=== PATIENT | female | born 2005 | race African-American/Black ===

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

== ENCOUNTER 2024-01-13 15:49 | Inpatient (IN) | payer MEDICAID, OTHER ==
[~2024-01-13] VITALS: Ht 162.6 cm; Wt 85.5 kg
[~2024-01-13 15:49] MED LIST changes: +RISP-106 PO; -RISP-9 PO
[2024-01-13 17:08] LABS: HEMATOCRIT 41.9 % (36.0-47.0); MEAN CORPUSCULAR HEMOGLOBIN 27.3 pg (27.0-33.0); MEAN CORPUSCULAR HGB CONC 33.4 g/dl (32.0-36.5); MEAN CORPUSCULAR VOLUME 81.8 fl (80.0-96.0); PLATELET COUNT, AUTOMATED 410 10^3/uL (150-450); RED BLOOD COUNT 5.12 10^6/uL (4.00-5.40); WHITE BLOOD COUNT 14.3 10^3/uL (4.0-10.0)
[2024-01-13 17:34] LABS: AMPHETAMINES LEVEL URINE NEGATIVE (NEGATIVE)
[2024-01-13 17:35] LABS: BARBITURATES URINE NEGATIVE (NEGATIVE); BENZODIAZEPINES URINE NEGATIVE (NEGATIVE)
[2024-01-13 17:36] LABS: CANNABINOIDS URINE NEGATIVE (NEGATIVE); COCAINE METABOLITE URINE NEGATIVE (NEGATIVE); ETHYL ALCOHOL (ETHANOL) < 0.003 % (0.000-0.010); HCG, SERUM QUALITATIVE NEGATIVE (NEGATIVE); METHADONE URINE NEGATIVE (NEGATIVE); OPIATES URINE NEGATIVE (NEGATIVE); PHENCYCLIDINE URINE NEGATIVE (NEGATIVE)
[2024-01-13 17:38] LABS: ALBUMIN 3.9 G/DL (3.2-5.2); ALKALINE PHOSPHATASE 120 U/L (46-116); ALT/SGPT < 9 U/L (7.0-40); AST/SGOT < 8 U/L (<34); BILIRUBIN,DIRECT 0.1 MG/DL (<0.4); BILIRUBIN,TOTAL 0.4 MG/DL (0.3-1.2); BLOOD UREA NITROGEN 13 MG/DL (9-23); CALCIUM LEVEL 10.2 MG/DL (8.5-10.1); CARBON DIOXIDE LEVEL 23 MMOL/L (20-31); CHLORIDE LEVEL 103 MMOL/L (98-107); CREATININE FOR GFR 0.59 MG/DL (0.55-1.30); GLUCOSE, FASTING 322 MG/DL (60-100); POTASSIUM SERUM 4.3 MMOL/L (3.5-5.1); SALICYLATE LEVEL < 3.0 MG/DL (<30); SODIUM LEVEL 135 MMOL/L (136-145); TOTAL PROTEIN 7.8 G/DL (5.7-8.2)
[2024-01-13 17:41] LABS: THYROID STIMULATING HORMONE 2.155 uIU/ML (0.48-4.17)
[2024-01-13] MEDS ORDERED: MAALOX 30 ML SUSP *UDC PO PRN (19:30)
[2024-01-13] MEDS ORDERED: MOM 30ML SUSPENSION UDC PO PRN (19:30)
[2024-01-13] MEDS ORDERED: diphenhydrAMINE 25MG CAP PO PRN (19:30)
[2024-01-13] MEDS ORDERED: IBUPROFEN 400MG TAB PO PRN (19:30)
[2024-01-13] MEDS ORDERED: DEXTROSE 50% 50ML SYRINGE IV PRN (20:45)
[2024-01-13] MEDS ORDERED: GLUCOSE 4GM CHEW TABLET PO PRN (20:45)
[2024-01-13] MEDS ORDERED: GLUCAGON INJ 1MG VIAL SC PRN (20:45)
[2024-01-13] MEDS ORDERED: HOME MED LIST COMPLETE! XX SCH (21:40)
[2024-01-13] MEDS: LEVEMIR (INSULIN DETEMIR) 1 UNITS/0.01ML SC SCH (22:24)
[2024-01-13 22:30] VITALS: BP 135/86; TEMP 97.9; O2SAT 96
[2024-01-13] MEDS: INSULIN LISPRO (NovoLOG) PER UNIT SC SCH (22:30)
[2024-01-14] MEDS: traZODone 50 MG TAB PO PRN (00:36)
[2024-01-14 06:38] VITALS: BP 131/90; TEMP 97.3; O2SAT 99
[2024-01-14] MEDS: INSULIN LISPRO (NovoLOG) PER UNIT SC SCH (06:45)
[2024-01-14] MEDS: ACETAMINOPHEN TAB 650MG DOSE (2X325MG) PO PRN (09:58)
[2024-01-14] MEDS: ESCITALOPRAM OXALATE 10 MG TAB (LEXAPRO) PO SCH (11:02)
[2024-01-14] MEDS: LITHIUM CARBONATE 150 MG CAP PO SCH (11:07)
[2024-01-14] MEDS: cloNIDine 0.1MG TABLET PO SCH (11:07)
[2024-01-14] MEDS: LURASIDONE 20 MG TAB (LATUDA) PO SCH (11:07)
[2024-01-14 18:17] VITALS: BP 122/78; TEMP 97; O2SAT 100
[2024-01-14] MEDS: LURASIDONE HCL 40MG TAB (LATUDA) PO SCH (21:28)
[2024-01-14] MEDS: PILL CUTTER 1 EACH XX PRN (21:28)
[2024-01-14] MEDS: buPROPion **XL** TABLET 150MG (WELLBUTRIN XL) PO SCH (21:29)
[2024-01-15 06:49] VITALS: BP 132/61; TEMP 97; O2SAT 100
[2024-01-15 07:42] LABS: CHOLESTEROL RISK RATIO 3.87 (<5); HDL CHOLESTEROL 48.8 MG/DL (>40); LDL CHOLESTEROL 122.6 MG/DL (<100); NON-HDL-C 140.2 MG/DL
[2024-01-15 07:46] LABS: LITHIUM LEVEL 0.16 MMOL/L (1.0-1.20)
[2024-01-15 16:32] VITALS: BP 134/62; TEMP 97.7; O2SAT 100
[2024-01-16 06:16] VITALS: BP 123/58; TEMP 97.8; O2SAT 100
[2024-01-16 15:59] VITALS: BP 120/69; TEMP 97; O2SAT 100
[2024-01-17 06:34] VITALS: BP 120/68; TEMP 97.5; O2SAT 99
[2024-01-17 16:10] VITALS: BP 112/60; TEMP 97.2; O2SAT 99
[2024-01-17] MEDS ORDERED: NICOTINE 7 MG/24 HR TRANSDERMAL TD PRN (18:45)
[2024-01-17] MEDS: LEVEMIR (INSULIN DETEMIR) 1 UNITS/0.01ML SC SCH (21:00)
[2024-01-18 06:50] VITALS: BP 143/89; TEMP 97.9; O2SAT 100
[2024-01-18 16:48] VITALS: BP 124/74; TEMP 97; O2SAT 98
[2024-01-19 06:16] VITALS: BP 137/62; TEMP 97.2; O2SAT 98
[2024-01-19 08:51] VITALS: BP 137/74
== END 2024-01-19 12:07 | disposition home or self-care (01) | DRG 750 ==
LOC: M ED 15:49 → M ED INP 19:29 → M PSY 22:00
PROVIDERS: ADMIT Student in an Organized Health Care Education/Training Program; ATTEND Student in an Organized Health Care Education/Training Program
DX: F25.9 Schizoaffective disorder, unspecified (principal); F60.3 Borderline personality disorder; F41.8 Other specified anxiety disorders; I10 Essential (primary) hypertension; F17.290 Nicotine dependence, other tobacco product, uncomplicated; F64.9 Gender identity disorder, unspecified; E11.9 Type 2 diabetes mellitus without complications; E66.9 Obesity, unspecified; Z56.0 Unemployment, unspecified; Z91.52 Personal history of nonsuicidal self-harm; Z91.51 Personal history of suicidal behavior; Z79.4 Long term (current) use of insulin; Z79.899 Other long term (current) drug therapy; Z88.0 Allergy status to penicillin; Z11.52 Encounter for screening for COVID-19

== ENCOUNTER 2024-02-05 23:49 | Emergency (ER) | payer MEDICAID, OTHER ==
[~2024-02-05] VITALS: Ht 160 cm; Wt 93.2 kg
[~2024-02-05 23:49] MED LIST changes: +BUPR-597; +BUPR-597 PO; -BUPR300T92; -BUPR300T92 PO; +INSU100I24 SQ
[2024-02-06 01:48] LABS: HEMATOCRIT 40.1 % (36.0-47.0); HEMOGLOBIN 13.3 g/dl (12.0-15.5); MEAN CORPUSCULAR HEMOGLOBIN 27.1 pg (27.0-33.0); MEAN CORPUSCULAR HGB CONC 33.2 g/dl (32.0-36.5); MEAN CORPUSCULAR VOLUME 81.8 fl (80.0-96.0); PLATELET COUNT, AUTOMATED 351 10^3/uL (150-450); WHITE BLOOD COUNT 13.5 10^3/uL (4.0-10.0)
[2024-02-06 02:14] LABS: ETHYL ALCOHOL (ETHANOL) < 0.003 % (0.000-0.010)
[2024-02-06 02:15] LABS: SALICYLATE LEVEL < 3.0 MG/DL (<30)
[2024-02-06 02:53] LABS: AMPHETAMINES LEVEL URINE NEGATIVE (NEGATIVE); BARBITURATES URINE NEGATIVE (NEGATIVE); BENZODIAZEPINES URINE NEGATIVE (NEGATIVE); CANNABINOIDS URINE NEGATIVE (NEGATIVE); COCAINE METABOLITE URINE NEGATIVE (NEGATIVE); METHADONE URINE NEGATIVE (NEGATIVE); OPIATES URINE NEGATIVE (NEGATIVE); PHENCYCLIDINE URINE NEGATIVE (NEGATIVE)
[2024-02-06] MEDS: LORazepam 1 MG TAB PO ONE (02:55)
[2024-02-06 02:57] LABS: ALBUMIN 3.8 G/DL (3.2-5.2); ALKALINE PHOSPHATASE 119 U/L (46-116); ALT/SGPT 12 U/L (7.0-40); AST/SGOT 8 U/L (<34); BILIRUBIN,DIRECT 0.2 MG/DL (<0.4); BILIRUBIN,TOTAL 0.5 MG/DL (0.3-1.2); BLOOD UREA NITROGEN 10 MG/DL (9-23); CALCIUM LEVEL 9.7 MG/DL (8.5-10.1); CARBON DIOXIDE LEVEL 25 MMOL/L (20-31); CHLORIDE LEVEL 99 MMOL/L (98-107); CREATININE FOR GFR 0.71 MG/DL (0.55-1.30); GLUCOSE, FASTING 460 MG/DL (60-100); POTASSIUM SERUM 4.3 MMOL/L (3.5-5.1); SODIUM LEVEL 131 MMOL/L (136-145); THYROID STIMULATING HORMONE 3.205 uIU/ML (0.48-4.17); TOTAL PROTEIN 7.5 G/DL (5.7-8.2)
[2024-02-06 03:01] LABS: HCG, SERUM QUALITATIVE NEGATIVE (NEGATIVE)
[2024-02-06 03:25] LABS: LITHIUM LEVEL 0.13 MMOL/L (1.0-1.20)
[2024-02-06] MEDS: diphenhydrAMINE 50MG/ML VIAL IM ONE (03:38)
[2024-02-06] MEDS: HALOPERIDOL 5MG/ML 1ML VIAL IM ONE (03:38)
[2024-02-06] MEDS: LORazepam 2 MG/ML 1ML VIAL IM ONE (03:39)
[2024-02-06] MEDS: HumuLIN R (REGULAR) INSULIN (NovoLIN R) **100U/ML** PER UNIT SC ONE (04:03)
[2024-02-06] MEDS ORDERED: HOME MED LIST COMPLETE! XX SCH (05:10)
[2024-02-06] MEDS: INSULIN LISPRO (NovoLOG) PER UNIT SC SCH (07:30)
[2024-02-06] MEDS: LEVEMIR (INSULIN DETEMIR) 1 UNITS/0.01ML SC SCH (13:40)
[2024-02-06] MEDS: ESCITALOPRAM OXALATE 10 MG TAB (LEXAPRO) PO SCH (13:41)
[2024-02-06] MEDS: LURASIDONE 20 MG TAB (LATUDA) PO SCH (13:41)
[2024-02-06] MEDS: cloNIDine 0.1MG TABLET PO SCH (13:42)
[2024-02-06] MEDS: LITHIUM CARBONATE 150 MG CAP PO SCH (13:42)
[2024-02-06] MEDS: buPROPion **XL** TABLET 150MG (WELLBUTRIN XL) PO SCH (20:53)
[2024-02-06] MEDS: LURASIDONE HCL 40MG TAB (LATUDA) PO SCH (20:53)
[2024-02-07 08:52] VITALS: BP 124/61
[2024-02-07 12:52] VITALS: BP 164/94; TEMP 97.9; O2SAT 98
[2024-02-16] MEDS ORDERED: BUPR-597 PO (07:58)
== END 2024-02-07 13:16 | disposition home or self-care (01) ==
LOC: M ED 23:49
DX: F60.3 Borderline personality disorder (principal); F43.20 Adjustment disorder, unspecified; E11.9 Type 2 diabetes mellitus without complications; Z91.51 Personal history of suicidal behavior; F20.9 Schizophrenia, unspecified; Z91.199 Patient's noncompliance with other medical treatment and regimen due to unspecified reason; Z79.4 Long term (current) use of insulin; Z79.899 Other long term (current) drug therapy; Z88.0 Allergy status to penicillin

== ENCOUNTER 2024-02-07 22:59 | Observation (INO) | payer OTHER ==
[~2024-02-07] VITALS: Ht 160 cm; Wt 87.0 kg
[2024-02-07 23:34] LABS: VENOUS HCO3 22.1 MMOL/L (23.0-27.0); VENOUS O2 SATURATION 79.3 % (60.0-80.0); VENOUS PARTIAL PRESSURE CO2 39.8 mmHg (38.0-50.0); VENOUS PARTIAL PRESSURE O2 44.6 mmHg (30.0-50.0); VENOUS PH 7.362 UNITS (7.330-7.430); VENOUS STANDARD HCO3 21.5 MMOL/L; VENOUS TOTAL CO2 23.3 MMOL/L (24.0-28.0)
[2024-02-08 00:08] LABS: BASO % 0.4 % (0.0-1.0); EOS # 0.2 10^3/uL (0.0-0.5); EOS % 1.6 % (0.0-3.0); ETHYL ALCOHOL (ETHANOL) < 0.003 % (0.000-0.010); HEMATOCRIT 41.3 % (36.0-47.0); HEMOGLOBIN 13.5 g/dl (12.0-15.5); LYMPH # 2.2 10^3/uL (1.5-5.0); LYMPH % 19.6 % (24.0-44.0); MEAN CORPUSCULAR HEMOGLOBIN 27.3 pg (27.0-33.0); MEAN CORPUSCULAR HGB CONC 32.7 g/dl (32.0-36.5); MEAN CORPUSCULAR VOLUME 83.4 fl (80.0-96.0); MONO # 0.3 10^3/uL (0.0-0.8); MONO % 2.2 % (2.0-8.0); NEUTROPHILS # 8.5 10^3/uL (1.5-8.5); NEUTROPHILS % 74.7 % (36.0-66.0); PLATELET COUNT, AUTOMATED 366 10^3/uL (150-450); RED BLOOD COUNT 4.95 10^6/uL (4.00-5.40); WHITE BLOOD COUNT 11.4 10^3/uL (4.0-10.0)
[2024-02-08 00:09] LABS: CPK CREATINE PHOSPHOKINASE 516 U/L (34-145); SALICYLATE LEVEL < 3.0 MG/DL (<30)
[2024-02-08 00:10] LABS: ALBUMIN 3.6 G/DL (3.2-5.2); ALKALINE PHOSPHATASE 110 U/L (46-116); ALT/SGPT 13 U/L (7.0-40); AST/SGOT 18 U/L (<34); BILIRUBIN,DIRECT < 0.1 MG/DL (<0.4); BILIRUBIN,TOTAL 0.3 MG/DL (0.3-1.2); BLOOD UREA NITROGEN 11 MG/DL (9-23); CALCIUM LEVEL 9.6 MG/DL (8.5-10.1); CARBON DIOXIDE LEVEL 26 MMOL/L (20-31); CHLORIDE LEVEL 103 MMOL/L (98-107); CREATININE FOR GFR 0.78 MG/DL (0.55-1.30); GLUCOSE, FASTING 102 MG/DL (60-100); POTASSIUM SERUM 3.6 MMOL/L (3.5-5.1); SODIUM LEVEL 138 MMOL/L (136-145); TOTAL PROTEIN 7.6 G/DL (5.7-8.2)
[2024-02-08 00:39] LABS: HCG, SERUM QUALITATIVE NEGATIVE (NEGATIVE)
[2024-02-08] MEDS: D5W/0.45% SODIUM CHLORIDE 1,000 ML IV SCH ×2 (00:39→06:35)
[2024-02-08] MEDS: DEXTROSE 50% 50ML VIAL IV STA (00:48)
[2024-02-08] MEDS: DEXTROSE 50% 50ML SYRINGE IV STA ×3 (00:57→04:47)
[2024-02-08 01:05] LABS: THYROID STIMULATING HORMONE 3.686 uIU/ML (0.48-4.17)
[2024-02-08 02:37] LABS: LITHIUM LEVEL 0.17 MMOL/L (1.0-1.20)
[2024-02-08 02:56] LABS: AMPHETAMINES LEVEL URINE NEGATIVE (NEGATIVE); BARBITURATES URINE NEGATIVE (NEGATIVE); BENZODIAZEPINES URINE NEGATIVE (NEGATIVE); COCAINE METABOLITE URINE NEGATIVE (NEGATIVE); METHADONE URINE NEGATIVE (NEGATIVE); OPIATES URINE NEGATIVE (NEGATIVE); PHENCYCLIDINE URINE NEGATIVE (NEGATIVE)
[2024-02-08 02:57] LABS: CANNABINOIDS URINE NEGATIVE (NEGATIVE)
[2024-02-08] MEDS: D10W/0.45% SODIUM CHLORIDE 1,000 ML IV SCH (04:54)
[2024-02-08] MEDS ORDERED: HOME MED LIST COMPLETE! XX SCH (05:30)
[2024-02-08] MEDS ORDERED: GLUCOSE 4 GM CHEW PO PRN ×2 (05:35→13:30)
[2024-02-08] MEDS ORDERED: DEXTROSE 50% 50ML SYRINGE IV PRN ×2 (05:35→13:30)
[2024-02-08] MEDS ORDERED: GLUCAGON INJ 1MG VIAL SC PRN ×2 (05:35→13:30)
[2024-02-08] MEDS: LORazepam 2 MG/ML 1ML VIAL IV PRN (06:36)
[2024-02-08] MEDS: ENOXAPARIN 40MG/0.4ML SYRINGE (J1650 PER 10MG) SC SCH (10:00)
[2024-02-08 13:15] VITALS: BP 150/99; TEMP 98.9; O2SAT 96
[2024-02-08] MEDS: cloNIDine 0.1MG TABLET PO SCH (14:10)
[2024-02-08] MEDS: ESCITALOPRAM OXALATE 10 MG TAB (LEXAPRO) PO SCH (14:11)
[2024-02-08] MEDS: LURASIDONE 20 MG TAB (LATUDA) PO SCH (15:36)
[2024-02-08 16:00] VITALS: BP 132/72
[2024-02-08] MEDS: INSULIN LISPRO (NovoLOG) PER UNIT SC SCH ×2 (17:48→20:26)
[2024-02-08] MEDS: LEVEMIR (INSULIN DETEMIR) 1 UNITS/0.01ML SC ONE (17:48)
[2024-02-08 20:00] VITALS: BP 134/75; TEMP 98.8; O2SAT 98
[2024-02-08] MEDS: buPROPion **XL** TABLET 150MG (WELLBUTRIN XL) PO SCH (20:24)
[2024-02-08] MEDS: LURASIDONE HCL 40MG TAB (LATUDA) PO SCH (20:25)
[2024-02-08] MEDS: LITHIUM CARBONATE 150 MG CAP PO SCH (20:25)
[2024-02-08] MEDS: LEVEMIR (INSULIN DETEMIR) 1 UNITS/0.01ML SC SCH (20:26)
[2024-02-08] MEDS ORDERED: LEVEMIR (INSULIN DETEMIR) 1 UNITS/0.01ML SC SCH (21:00)
[2024-02-08] MEDS ORDERED: cloNIDine 0.1MG TABLET PO SCH (21:00)
[2024-02-09 04:53] LABS: HEMATOCRIT 35.7 % (36.0-47.0); MEAN CORPUSCULAR HEMOGLOBIN 26.9 pg (27.0-33.0); MEAN CORPUSCULAR HGB CONC 32.2 g/dl (32.0-36.5); MEAN CORPUSCULAR VOLUME 83.4 fl (80.0-96.0); PLATELET COUNT, AUTOMATED 274 10^3/uL (150-450); RED BLOOD COUNT 4.28 10^6/uL (4.00-5.40); WHITE BLOOD COUNT 7.8 10^3/uL (4.0-10.0)
[2024-02-09 05:00] VITALS: BP 126/79; TEMP 97.6; O2SAT 98
[2024-02-09 05:10] LABS: HEMOGLOBIN 11.5 g/dl (12.0-15.5)
[2024-02-09 05:23] LABS: BLOOD UREA NITROGEN 8 MG/DL (9-23); CALCIUM LEVEL 8.4 MG/DL (8.5-10.1); CARBON DIOXIDE LEVEL 28 MMOL/L (20-31); CHLORIDE LEVEL 108 MMOL/L (98-107); CREATININE FOR GFR 0.66 MG/DL (0.55-1.30); GLUCOSE, FASTING 138 MG/DL (60-100); POTASSIUM SERUM 4.1 MMOL/L (3.5-5.1); SODIUM LEVEL 141 MMOL/L (136-145)
[2024-02-09 08:00] VITALS: TEMP 97.3; O2SAT 98
[2024-02-09 08:50] VITALS: BP 132/85
[2024-02-09] MEDS ORDERED: PILL CUTTER 1 EACH XX PRN (09:00)
[2024-02-16] MEDS ORDERED: BUPR-597 PO (07:58)
== END 2024-02-09 15:32 ==
LOC: M ED 22:59 → EDBD 22:59 → INTOOBSV 02-08 05:22 → M ED INP 02-08 05:22 → ENRESERV 02-08 11:54 → M ICU 02-08 13:03
PROVIDERS: ADMIT Internal Medicine Pulmonary Disease; ATTEND Internal Medicine
DX: T14.91XA Suicide attempt, initial encounter (principal); T38.3X2A Poisoning by insulin and oral hypoglycemic [antidiabetic] drugs, intentional self-harm, initial encounter; Y92.098 Other place in other non-institutional residence as the place of occurrence of the external cause; R00.0 Tachycardia, unspecified; Z63.0 Problems in relationship with spouse or partner; F32.A Depression, unspecified; F60.3 Borderline personality disorder; F25.9 Schizoaffective disorder, unspecified; E10.649 Type 1 diabetes mellitus with hypoglycemia without coma; I10 Essential (primary) hypertension; F64.9 Gender identity disorder, unspecified; Z91.51 Personal history of suicidal behavior; Z88.0 Allergy status to penicillin; Z79.899 Other long term (current) drug therapy; Z79.4 Long term (current) use of insulin; F17.290 Nicotine dependence, other tobacco product, uncomplicated; Z91.199 Patient's noncompliance with other medical treatment and regimen due to unspecified reason; F43.20 Adjustment disorder, unspecified; R45.1 Restlessness and agitation
CPT/HCPCS: 36415; 80047; 80048; 80076; 80143; 80178; 80307; 82077; 82550; 82803; 84443; 84703; 85025; 85027; 87635; 93005; 93041; 94760; 96361; 96372; 96374; 96375; 99285; J1200; J1630; J1650; J1815; J2060

== ENCOUNTER 2024-02-09 11:45 | Inpatient (IN) | payer MEDICAID, OTHER ==
[~2024-02-09] VITALS: Ht 160 cm; Wt 87.0 kg
[~2024-02-09 11:45] MED LIST changes: -BUPR-597; -BUPR-597 PO; +BUPR300T92; +BUPR300T92 PO
[2024-02-09] MEDS ORDERED: ACETAMINOPHEN TAB 650MG DOSE (2X325MG) PO PRN (12:10)
[2024-02-09] MEDS ORDERED: MAALOX 30 ML SUSP *UDC PO PRN (12:10)
[2024-02-09] MEDS ORDERED: MOM 30ML SUSPENSION UDC PO PRN (12:10)
[2024-02-09] MEDS ORDERED: traZODone 50 MG TAB PO PRN (12:10)
[2024-02-09] MEDS ORDERED: IBUPROFEN 400MG TAB PO PRN (12:10)
[2024-02-09] MEDS ORDERED: GLUCOSE 4GM CHEW TABLET PO PRN (12:20)
[2024-02-09] MEDS ORDERED: GLUCAGON INJ 1MG VIAL SC PRN (12:20)
[2024-02-09] MEDS ORDERED: DEXTROSE 50% 50ML SYRINGE IV PRN (12:20)
[2024-02-09] MEDS: INSULIN LISPRO (NovoLOG) PER UNIT SC SCH ×2 (17:31→21:00)
[2024-02-09] MEDS: LEVEMIR (INSULIN DETEMIR) 1 UNITS/0.01ML SC SCH (21:53)
[2024-02-09] MEDS ORDERED: cloNIDine 0.05MG 1/2 TABLET PO ONE (22:55)
[2024-02-10] MEDS: LURASIDONE HCL 40MG TAB (LATUDA) PO ONE (00:13)
[2024-02-10] MEDS: cloNIDine 0.1MG TABLET PO ONE (00:18)
[2024-02-10] MEDS: buPROPion **XL** TABLET 150MG (WELLBUTRIN XL) PO ONE (00:18)
[2024-02-10] MEDS: LITHIUM CARBONATE 150 MG CAP PO ONE (00:18)
[2024-02-10 00:21] VITALS: BP 143/81; TEMP 97.2
[2024-02-10] MEDS ORDERED: cloNIDine 0.1MG TABLET PO ONE (01:00)
[2024-02-10 06:19] VITALS: BP_SYST 130; BP_SYST 146; BP_DIAS 79; BP_DIAS 90; TEMP 97.4; O2SAT 100
[2024-02-10] MEDS ORDERED: HOME MED LIST COMPLETE! XX SCH (07:15)
[2024-02-10] MEDS: LEVEMIR (INSULIN DETEMIR) 1 UNITS/0.01ML SC SCH (09:00)
[2024-02-10 17:14] VITALS: BP 153/99; TEMP 97.1; O2SAT 100
[2024-02-10] MEDS: buPROPion **XL** TABLET 150MG (WELLBUTRIN XL) PO SCH (21:49)
[2024-02-10] MEDS: LITHIUM CARBONATE 150 MG CAP PO SCH (21:50)
[2024-02-10] MEDS: LURASIDONE HCL 40MG TAB (LATUDA) PO SCH (21:50)
[2024-02-10] MEDS: cloNIDine 0.1MG TABLET PO SCH (21:51)
[2024-02-10] MEDS: diphenhydrAMINE 25MG CAP PO PRN (21:54)
[2024-02-11] MEDS: ESCITALOPRAM OXALATE 10 MG TAB (LEXAPRO) PO SCH (09:45)
[2024-02-11] MEDS: LURASIDONE 20 MG TAB (LATUDA) PO SCH (09:46)
[2024-02-11 17:36] VITALS: BP 144/91; TEMP 98.8; O2SAT 100
[2024-02-11] MEDS: PILL CUTTER 1 EACH XX PRN (21:02)
[2024-02-11] MEDS: LEVEMIR (INSULIN DETEMIR) 1 UNITS/0.01ML SC SCH (21:05)
[2024-02-12 06:12] VITALS: BP 145/90; TEMP 97; O2SAT 100
[2024-02-12 17:09] VITALS: BP 121/80; TEMP 97.4; O2SAT 100
[2024-02-12 20:56] VITALS: BP 138/94
[2024-02-13 06:14] VITALS: BP 121/76; TEMP 97.9; O2SAT 100
[2024-02-13] MEDS: OLANZapine ORAL DISINTEGRATING TAB 5MG PO PRN (11:09)
[2024-02-13 22:32] VITALS: BP 114/63
[2024-02-14 08:58] VITALS: BP 138/73
[2024-02-14 16:25] VITALS: BP 136/84; TEMP 97.5; O2SAT 100
[2024-02-15 17:24] VITALS: BP 137/83; TEMP 97.3; O2SAT 100
[2024-02-16] MEDS ORDERED: LITH150C PO (07:58)
[2024-02-16] MEDS ORDERED: CLONI1TA PO (07:58)
[2024-02-16] MEDS ORDERED: LATU80TA2 PO (07:58)
[2024-02-16] MEDS ORDERED: OLAN5ZYD PO (07:58)
[2024-02-16] MEDS ORDERED: LATU20TA PO (07:58)
[2024-02-16] MEDS ORDERED: BUPR300T92 PO (07:58)
[2024-02-16] MEDS ORDERED: LEXA1TAB2 PO (07:58)
[2024-02-16 11:04] VITALS: BP 148/79
== END 2024-02-16 11:57 | disposition home or self-care (01) | DRG 750 ==
LOC: M PSY 15:40
PROVIDERS: ADMIT Student in an Organized Health Care Education/Training Program; ATTEND Student in an Organized Health Care Education/Training Program
DX: F25.9 Schizoaffective disorder, unspecified (principal); F60.3 Borderline personality disorder; F41.8 Other specified anxiety disorders; F17.210 Nicotine dependence, cigarettes, uncomplicated; F12.90 Cannabis use, unspecified, uncomplicated; I10 Essential (primary) hypertension; E10.9 Type 1 diabetes mellitus without complications; F64.9 Gender identity disorder, unspecified; F60.2 Antisocial personality disorder; R45.851 Suicidal ideations; Z79.4 Long term (current) use of insulin; Z79.899 Other long term (current) drug therapy; Z88.0 Allergy status to penicillin; Z88.1 Allergy status to other antibiotic agents; Z56.0 Unemployment, unspecified; Z71.6 Tobacco abuse counseling; Z91.51 Personal history of suicidal behavior

== ENCOUNTER 2024-04-30 17:54 | Emergency (ER) | payer MEDICAID, OTHER ==
[~2024-04-30] VITALS: Ht 160 cm; Wt 83.5 kg
[~2024-04-30 17:54] MED LIST changes: +BUPR-597; +BUPR-597 PO; -BUPR300T92; -BUPR300T92 PO; +OLAN5ZYD PO
[2024-04-30] MEDS ORDERED: LURA80TA PO (20:40)
[2024-04-30] MEDS ORDERED: LATU20TA PO (20:40)
[2024-04-30] MEDS ORDERED: BUPR150T12 PO (20:42)
[2024-04-30 20:46] VITALS: BP 129/83; TEMP 97.4; O2SAT 98
== END 2024-04-30 20:52 | disposition home or self-care (01) ==
LOC: M ED 17:54
DX: Z76.0 Encounter for issue of repeat prescription (principal); E11.9 Type 2 diabetes mellitus without complications; Z79.4 Long term (current) use of insulin; Z88.0 Allergy status to penicillin

== ENCOUNTER 2024-05-06 22:23 | Inpatient (IN) | payer MEDICAID, OTHER ==
[~2024-05-06] VITALS: Ht 160 cm; Wt 75.0 kg
[~2024-05-06 22:23] MED LIST changes: +LURA80TA PO
[2024-05-06 23:12] LABS: HEMATOCRIT 39.4 % (36.0-47.0); HEMOGLOBIN 12.9 g/dl (12.0-15.5); MEAN CORPUSCULAR HEMOGLOBIN 26.8 pg (27.0-33.0); MEAN CORPUSCULAR HGB CONC 32.7 g/dl (32.0-36.5); MEAN CORPUSCULAR VOLUME 81.7 fl (80.0-96.0); PLATELET COUNT, AUTOMATED 327 10^3/uL (150-450); RED BLOOD COUNT 4.82 10^6/uL (4.00-5.40); WHITE BLOOD COUNT 12.2 10^3/uL (4.0-10.0)
[2024-05-06 23:41] LABS: AMPHETAMINES LEVEL URINE NEGATIVE (NEGATIVE); BARBITURATES URINE NEGATIVE (NEGATIVE); BENZODIAZEPINES URINE NEGATIVE (NEGATIVE); CANNABINOIDS URINE NEGATIVE (NEGATIVE); COCAINE METABOLITE URINE NEGATIVE (NEGATIVE); METHADONE URINE NEGATIVE (NEGATIVE); OPIATES URINE NEGATIVE (NEGATIVE); PHENCYCLIDINE URINE NEGATIVE (NEGATIVE)
[2024-05-06 23:44] LABS: ETHYL ALCOHOL (ETHANOL) < 0.003 % (0.000-0.010)
[2024-05-06 23:45] LABS: SALICYLATE LEVEL < 3.0 MG/DL (<30)
[2024-05-06] MEDS ORDERED: OLAN5ZYD PO (23:51)
[2024-05-06] MEDS ORDERED: LURA20TA PO (23:51)
[2024-05-06] MEDS ORDERED: BUPR150T12 PO (23:51)
[2024-05-06] MEDS ORDERED: TRUL10IN INJ (23:51)
[2024-05-06 23:53] LABS: ALKALINE PHOSPHATASE 111 U/L (46-116); ALT/SGPT 12 U/L (7.0-40); AST/SGOT 20 U/L (<34); BILIRUBIN,DIRECT < 0.1 MG/DL (<0.4); BILIRUBIN,TOTAL 0.4 MG/DL (0.3-1.2); BLOOD UREA NITROGEN 13 MG/DL (9-23); CALCIUM LEVEL 8.9 MG/DL (8.5-10.1); CARBON DIOXIDE LEVEL 22 MMOL/L (20-31); CHLORIDE LEVEL 101 MMOL/L (98-107); CREATININE FOR GFR 0.63 MG/DL (0.55-1.30); GLUCOSE, FASTING 451 MG/DL (60-100); POTASSIUM SERUM 4.8 MMOL/L (3.5-5.1); SODIUM LEVEL 130 MMOL/L (136-145); THYROID STIMULATING HORMONE 2.709 uIU/ML (0.48-4.17); TOTAL PROTEIN 7.3 G/DL (5.7-8.2)
[2024-05-06] MEDS ORDERED: HOME MED LIST COMPLETE! XX SCH (23:55)
[2024-05-06 23:57] LABS: HCG, SERUM QUALITATIVE NEGATIVE (NEGATIVE)
[2024-05-07] MEDS: HumuLIN R (REGULAR) INSULIN (NovoLIN R) **100U/ML** PER UNIT SC STA (01:15)
[2024-05-07] MEDS: LEVEMIR (INSULIN DETEMIR) 1 UNITS/0.01ML SC ONE (01:18)
[2024-05-07] MEDS ORDERED: OLANZapine 5 MG TAB PO PRN (08:40)
[2024-05-07] MEDS: ESCITALOPRAM OXALATE 10 MG TAB (LEXAPRO) PO SCH (09:00)
[2024-05-07] MEDS: LITHIUM CARBONATE 150 MG CAP PO SCH (09:00)
[2024-05-07] MEDS ORDERED: GLUCOSE 4 GM CHEW PO PRN ×2 (10:50→14:55)
[2024-05-07] MEDS ORDERED: DEXTROSE 50% 50ML SYRINGE IV PRN ×2 (10:50→14:55)
[2024-05-07] MEDS ORDERED: GLUCAGON INJ 1MG VIAL SC PRN ×2 (10:50→14:55)
[2024-05-07] MEDS ORDERED: IBUPROFEN 400MG TAB PO PRN (12:00)
[2024-05-07] MEDS ORDERED: MAALOX 30 ML SUSP *UDC PO PRN (12:00)
[2024-05-07] MEDS ORDERED: MOM 30ML SUSPENSION UDC PO PRN (12:00)
[2024-05-07] MEDS ORDERED: INSULIN LISPRO (NovoLOG) PER UNIT SC SCH (12:00)
[2024-05-07] MEDS ORDERED: ACETAMINOPHEN TAB 650MG DOSE (2X325MG) PO PRN (12:00)
[2024-05-07] MEDS: LURASIDONE 20 MG TAB (LATUDA) PO SCH (13:15)
[2024-05-07] MEDS: INSULIN LISPRO (NovoLOG) PER UNIT SC SCH ×3 (13:15→21:00)
[2024-05-07 14:12] VITALS: BP 137/73; TEMP 97.9; O2SAT 99
[2024-05-07] MEDS: OLANZapine ORAL DISINTEGRATING TAB 5MG PO PRN (15:41)
[2024-05-07] MEDS ORDERED: buPROPion **XL** TABLET 150MG (WELLBUTRIN XL) PO SCH (21:00)
[2024-05-07] MEDS ORDERED: LEVEMIR (INSULIN DETEMIR) 1 UNITS/0.01ML SC SCH (21:00)
[2024-05-07] MEDS ORDERED: LURASIDONE HCL 40MG TAB (LATUDA) PO SCH (21:00)
[2024-05-08 06:26] VITALS: BP 135/83; TEMP 96.6; O2SAT 100
[2024-05-08] MEDS: LURASIDONE HCL 40MG TAB (LATUDA) PO SCH (18:00)
[2024-05-08] MEDS: LITHIUM CARBONATE 150 MG CAP PO SCH (21:42)
[2024-05-08] MEDS: INSULIN LISPRO (NovoLOG) PER UNIT SC STA (23:41)
[2024-05-09 06:35] VITALS: BP 144/88; TEMP 97.4; O2SAT 95
[2024-05-09 18:47] VITALS: BP 140/82; TEMP 97.5
[2024-05-09] MEDS: traZODone 50 MG TAB PO PRN (23:07)
[2024-05-10] MEDS ORDERED: OLANZapine ORAL DISINTEGRATING TAB 5MG PO PRN (07:40)
[2024-05-10] MEDS ORDERED: LURASIDONE 20 MG TAB (LATUDA) PO SCH ×2 (09:00→18:00)
[2024-05-10] MEDS: ESCITALOPRAM OXALATE 10 MG TAB (LEXAPRO) PO SCH (09:00)
[2024-05-10] MEDS: diphenhydrAMINE 25MG CAP PO PRN (14:31)
[2024-05-10] MEDS: buPROPion **XL** TABLET 150MG (WELLBUTRIN XL) PO SCH (21:22)
[2024-05-10] MEDS: LURASIDONE 20 MG TAB (LATUDA) PO SCH (21:22)
[2024-05-11 06:33] VITALS: BP 132/64; TEMP 98.1; O2SAT 98
[2024-05-12 06:41] VITALS: BP 142/90; TEMP 97; O2SAT 99
== END 2024-05-12 16:28 | disposition home or self-care (01) | DRG 750 ==
LOC: M ED 22:23 → M ED INP 05-07 11:56 → M PSY 05-07 13:53
PROVIDERS: ADMIT Psychiatry & Neurology Psychiatry; ATTEND Student in an Organized Health Care Education/Training Program
DX: F25.9 Schizoaffective disorder, unspecified (principal); E11.65 Type 2 diabetes mellitus with hyperglycemia; R45.851 Suicidal ideations; E11.9 Type 2 diabetes mellitus without complications; F12.10 Cannabis abuse, uncomplicated; F41.8 Other specified anxiety disorders; F60.3 Borderline personality disorder; I10 Essential (primary) hypertension; F17.200 Nicotine dependence, unspecified, uncomplicated; F64.9 Gender identity disorder, unspecified; F60.2 Antisocial personality disorder; Z88.0 Allergy status to penicillin; Z79.4 Long term (current) use of insulin; Z79.899 Other long term (current) drug therapy; Z63.8 Other specified problems related to primary support group

== ENCOUNTER → 2024-06-16 | Outpatient (REF) | payer MEDICAID ==
[~2024-06-16] MED LIST changes: -ARIP1TAB43; +ARIP20TA51; +LURA20TA PO; +TRUL10IN INJ
== END ==
LOC: M LAB REF 16:09
PROVIDERS: ATTEND Nurse Practitioner Family
DX: R30.0 Dysuria (principal)

== ENCOUNTER 2024-07-01 19:32 | Inpatient (IN) | payer MEDICAID, OTHER ==
[~2024-07-01] VITALS: Ht 160 cm; Wt 82.8 kg
[~2024-07-01 19:32] MED LIST changes: +INSU100I24 SC; -INSU100I24 SQ
[2024-07-01 21:07] LABS: HEMATOCRIT 37.5 % (36.0-47.0); HEMOGLOBIN 12.5 g/dl (12.0-15.5); MEAN CORPUSCULAR HEMOGLOBIN 27.2 pg (27.0-33.0); MEAN CORPUSCULAR HGB CONC 33.3 g/dl (32.0-36.5); MEAN CORPUSCULAR VOLUME 81.5 fl (80.0-96.0); PLATELET COUNT, AUTOMATED 366 10^3/uL (150-450)
[2024-07-01 21:26] LABS: BARBITURATES URINE NEGATIVE (NEGATIVE)
[2024-07-01 21:27] LABS: AMPHETAMINES LEVEL URINE NEGATIVE (NEGATIVE); BENZODIAZEPINES URINE NEGATIVE (NEGATIVE); CANNABINOIDS URINE NEGATIVE (NEGATIVE); COCAINE METABOLITE URINE NEGATIVE (NEGATIVE); METHADONE URINE NEGATIVE (NEGATIVE); OPIATES URINE NEGATIVE (NEGATIVE); PHENCYCLIDINE URINE NEGATIVE (NEGATIVE)
[2024-07-01 21:29] LABS: ETHYL ALCOHOL (ETHANOL) < 0.003 % (0.000-0.010)
[2024-07-01 21:31] LABS: SALICYLATE LEVEL < 3.0 MG/DL (<30)
[2024-07-01] MEDS ORDERED: HOME MED LIST COMPLETE! XX SCH (21:40)
[2024-07-01 22:25] LABS: ALBUMIN 3.8 G/DL (3.2-5.2); ALKALINE PHOSPHATASE 87 U/L (46-116); ALT/SGPT < 9 U/L (7.0-40); AST/SGOT < 8 U/L (<34); BILIRUBIN,DIRECT 0.1 MG/DL (<0.4); BILIRUBIN,TOTAL 0.4 MG/DL (0.3-1.2); BLOOD UREA NITROGEN 12 MG/DL (9-23); CALCIUM LEVEL 10.1 MG/DL (8.5-10.1); CARBON DIOXIDE LEVEL 24 MMOL/L (20-31); CHLORIDE LEVEL 109 MMOL/L (98-107); CREATININE FOR GFR 0.66 MG/DL (0.55-1.30); GLUCOSE, FASTING 153 MG/DL (60-100); POTASSIUM SERUM 4.1 MMOL/L (3.5-5.1); SODIUM LEVEL 140 MMOL/L (136-145); TOTAL PROTEIN 7.6 G/DL (5.7-8.2)
[2024-07-01 22:53] LABS: HCG, SERUM QUANTITATIVE < 2.6 MIU/ML (<4.2)
[2024-07-02] MEDS: buPROPion **XL** TABLET 150MG (WELLBUTRIN XL) PO SCH (00:04)
[2024-07-02] MEDS: LURASIDONE HCL 40MG TAB (LATUDA) PO SCH (00:05)
[2024-07-02] MEDS: LITHIUM CARBONATE 150 MG CAP PO SCH (00:05)
[2024-07-02 00:24] LABS: THYROID STIMULATING HORMONE 1.234 uIU/ML (0.48-4.17)
[2024-07-02] MEDS: INSULIN LISPRO (NovoLOG) PER UNIT SC SCH (07:30)
[2024-07-02] MEDS: LURASIDONE 20 MG TAB (LATUDA) PO SCH (08:32)
[2024-07-02] MEDS: ESCITALOPRAM OXALATE 10 MG TAB (LEXAPRO) PO SCH (09:17)
[2024-07-02] MEDS: LEVEMIR (INSULIN DETEMIR) 1 UNITS/0.01ML SC SCH (21:24)
[2024-07-02] MEDS: hydrOXYzine 50 MG TAB PO STA (21:36)
[2024-07-02 22:49] LABS: APPEARANCE, URINE CLOUDY (CLEAR); BACTERIA, URINE AUTO 2+ (NEGATIVE); BILIRUBIN, URINE AUTO NEGATIVE (NEGATIVE); BLOOD, URINE BLOOD NEGATIVE (NEGATIVE); COLOR, URINE YELLOW (YELLOW); GLUCOSE, URINE (UA) AUTO NEGATIVE (NEGATIVE); KETONE, URINE AUTO NEGATIVE (NEGATIVE); LEUKOCYTE ESTERASE, URINE AUTO NEGATIVE (NEGATIVE); MUCUS, URINE SMALL (NEGATIVE); NITRITE, URINE AUTO NEGATIVE (NEGATIVE); PROTEIN, URINE AUTO NEGATIVE (NEGATIVE); RBC, URINE AUTO 0 /HPF (0-3); SQUAMOUS EPITHELIAL CELL UR AU 11 /HPF (0-6); UROBILINOGEN, URINE AUTO 0.2 mg/dL (0.0-2.0); WBC, URINE AUTO 3 /HPF (0-3)
[2024-07-04] MEDS ORDERED: traZODone 50 MG TAB PO PRN (14:00)
[2024-07-04] MEDS ORDERED: IBUPROFEN 400MG TAB PO PRN (14:00)
[2024-07-04] MEDS ORDERED: MAALOX 30 ML SUSP *UDC PO PRN (14:00)
[2024-07-04] MEDS ORDERED: MOM 30ML SUSPENSION UDC PO PRN (14:00)
[2024-07-04] MEDS ORDERED: ACETAMINOPHEN TAB 650MG DOSE (2X325MG) PO PRN (14:00)
[2024-07-04] MEDS ORDERED: GLUCOSE 4 GM CHEW PO PRN (20:35)
[2024-07-04] MEDS ORDERED: GLUCAGON INJ 1MG VIAL SC PRN (20:35)
[2024-07-04] MEDS ORDERED: DEXTROSE 50% 50ML SYRINGE IV PRN (20:35)
[2024-07-04] MEDS ORDERED: LEVEMIR (INSULIN DETEMIR) 1 UNITS/0.01ML SC SCH (21:00)
[2024-07-04] MEDS: LEVEMIR (INSULIN DETEMIR) 1 UNITS/0.01ML SC SCH (21:00)
[2024-07-04] MEDS: buPROPion **XL** TABLET 150MG (WELLBUTRIN XL) PO SCH (22:00)
[2024-07-04] MEDS: LURASIDONE HCL 40MG TAB (LATUDA) PO SCH (22:01)
[2024-07-05] MEDS ORDERED: UNRESOLVED CLARIFICATION ENTRY XX SCH (00:01)
[2024-07-05] MEDS: diphenhydrAMINE 25MG CAP PO PRN (00:17)
[2024-07-05] MEDS: OLANZapine ORAL DISINTEGRATING TAB 5MG PO ONE (05:20)
[2024-07-05 06:27] VITALS: BP 140/78; TEMP 98.5; O2SAT 99
[2024-07-05] MEDS: INSULIN LISPRO (NovoLOG) PER UNIT SC SCH (06:48)
[2024-07-05] MEDS: LURASIDONE 20 MG TAB (LATUDA) PO SCH (10:00)
[2024-07-05] MEDS: ESCITALOPRAM OXALATE 10 MG TAB (LEXAPRO) PO SCH (10:00)
[2024-07-05 15:51] VITALS: BP 135/91; TEMP 97; O2SAT 99
[2024-07-06 06:27] VITALS: BP 125/68; TEMP 96.9; O2SAT 99
[2024-07-06] MEDS: buPROPion **XL** TABLET 150MG (WELLBUTRIN XL) PO SCH (20:54)
[2024-07-08] MEDS: OLANZapine ORAL DISINTEGRATING TAB 5MG PO ONE (05:13)
[2024-07-08 05:57] VITALS: BP 134/89; TEMP 98.3; O2SAT 98
[2024-07-08] MEDS: TRULICITY 0.75 MG/0.5 ML SQ SCH (09:00)
[2024-07-08 16:20] VITALS: BP 142/83; TEMP 97.8; O2SAT 100
[2024-07-09 06:14] VITALS: BP 143/81; TEMP 97.5; O2SAT 100
[2024-07-09 16:11] VITALS: BP 134/85; TEMP 98.3; O2SAT 97
[2024-07-10 15:58] VITALS: BP 144/94; TEMP 98.1; O2SAT 99
[2024-07-10] MEDS: OLANZapine 5 MG TAB PO ONE (20:49)
[2024-07-11] MEDS: LITHIUM CARBONATE 150 MG CAP PO SCH (11:29)
[2024-07-11 15:25] VITALS: BP 140/73; TEMP 97.8; O2SAT 97
[2024-07-12 16:41] VITALS: BP 139/80; TEMP 97; O2SAT 100
[2024-07-13 06:18] VITALS: BP 119/56; TEMP 98; O2SAT 97
[2024-07-14 06:33] VITALS: BP 124/69; TEMP 98.2; O2SAT 97
[2024-07-15 06:15] VITALS: BP 126/80; TEMP 97.4; O2SAT 100
[2024-07-15] MEDS ORDERED: BUPR150T12 PO (08:39)
== END 2024-07-15 12:44 | disposition home or self-care (01) | DRG 750 ==
LOC: M ED 19:32 → M ED INP 07-04 13:57 → M PSY 07-04 14:55
PROVIDERS: ADMIT Psychiatry & Neurology Psychiatry; ATTEND Psychiatry & Neurology Psychiatry
DX: F25.9 Schizoaffective disorder, unspecified (principal); E11.9 Type 2 diabetes mellitus without complications; R45.851 Suicidal ideations; F41.9 Anxiety disorder, unspecified; F17.210 Nicotine dependence, cigarettes, uncomplicated; F60.89 Other specific personality disorders; F12.10 Cannabis abuse, uncomplicated; I10 Essential (primary) hypertension; Z79.4 Long term (current) use of insulin; Z79.899 Other long term (current) drug therapy; Z88.0 Allergy status to penicillin; E66.9 Obesity, unspecified; Z68.33 Body mass index [BMI] 33.0-33.9, adult

== ENCOUNTER 2024-08-01 19:35 | Inpatient (IN) | payer MEDICAID, MEDICARE, OTHER ==
[~2024-08-01] VITALS: Ht 160 cm; Wt 82.7 kg
[~2024-08-01 19:35] MED LIST changes: -ARIP10TA32 PO; +ARIP10TA63 PO
[2024-08-01] MEDS ORDERED: HOME MED LIST COMPLETE! XX SCH (20:20)
[2024-08-01 20:38] LABS: HEMATOCRIT 37.6 % (36.0-47.0); HEMOGLOBIN 12.5 g/dl (12.0-15.5); MEAN CORPUSCULAR HEMOGLOBIN 26.9 pg (27.0-33.0); MEAN CORPUSCULAR HGB CONC 33.2 g/dl (32.0-36.5); PLATELET COUNT, AUTOMATED 401 10^3/uL (150-450); RED BLOOD COUNT 4.64 10^6/uL (4.00-5.40); WHITE BLOOD COUNT 13.3 10^3/uL (4.0-10.0)
[2024-08-01 20:58] LABS: AMPHETAMINES LEVEL URINE NEGATIVE (NEGATIVE); BARBITURATES URINE NEGATIVE (NEGATIVE); CANNABINOIDS URINE NEGATIVE (NEGATIVE); COCAINE METABOLITE URINE NEGATIVE (NEGATIVE); METHADONE URINE NEGATIVE (NEGATIVE); OPIATES URINE NEGATIVE (NEGATIVE); PHENCYCLIDINE URINE NEGATIVE (NEGATIVE)
[2024-08-01 20:59] LABS: BENZODIAZEPINES URINE NEGATIVE (NEGATIVE)
[2024-08-01 21:01] LABS: ETHYL ALCOHOL (ETHANOL) < 0.003 % (0.000-0.010)
[2024-08-01 21:03] LABS: ALKALINE PHOSPHATASE 93 U/L (46-116); ALT/SGPT 15 U/L (7.0-40); AST/SGOT 61 U/L (<34); BILIRUBIN,DIRECT 0.1 MG/DL (<0.4); BILIRUBIN,TOTAL 0.3 MG/DL (0.3-1.2); BLOOD UREA NITROGEN 9 MG/DL (9-23); CALCIUM LEVEL 10.2 MG/DL (8.5-10.1); CARBON DIOXIDE LEVEL 23 MMOL/L (20-31); CHLORIDE LEVEL 105 MMOL/L (98-107); CREATININE FOR GFR 0.78 MG/DL (0.55-1.30); GLUCOSE, FASTING 109 MG/DL (60-100); POTASSIUM SERUM 4.3 MMOL/L (3.5-5.1); SALICYLATE LEVEL < 3.0 MG/DL (<30); SODIUM LEVEL 138 MMOL/L (136-145)
[2024-08-01 21:04] LABS: THYROID STIMULATING HORMONE 2.902 uIU/ML (0.48-4.17)
[2024-08-01 21:39] LABS: HCG, SERUM QUALITATIVE NEGATIVE (NEGATIVE)
[2024-08-01 21:40] LABS: LITHIUM LEVEL 0.17 MMOL/L (1.0-1.20)
[2024-08-01] MEDS ORDERED: MAALOX 30 ML SUSP *UDC PO PRN (21:55)
[2024-08-01] MEDS ORDERED: traZODone 50 MG TAB PO PRN (21:55)
[2024-08-01] MEDS ORDERED: IBUPROFEN 400MG TAB PO PRN (21:55)
[2024-08-01] MEDS ORDERED: MOM 30ML SUSPENSION UDC PO PRN (21:55)
[2024-08-01] MEDS ORDERED: ACETAMINOPHEN TAB 650MG DOSE (2X325MG) PO PRN (21:55)
[2024-08-02] MEDS: diphenhydrAMINE 25MG CAP PO PRN (00:51)
[2024-08-02 01:00] VITALS: BP 150/99; TEMP 97.8; O2SAT 100
[2024-08-02] MEDS ORDERED: DEXTROSE 50% 50ML SYRINGE IV PRN (05:35)
[2024-08-02] MEDS ORDERED: GLUCAGON INJ 1MG VIAL SC PRN (05:35)
[2024-08-02] MEDS ORDERED: GLUCOSE 4 GM CHEW PO PRN (05:35)
[2024-08-02] MEDS: INSULIN LISPRO (NovoLOG) PER UNIT SC SCH ×2 (06:26→21:00)
[2024-08-02 06:40] VITALS: BP 145/72; TEMP 97.8; O2SAT 96
[2024-08-02] MEDS: OLANZapine ORAL DISINTEGRATING TAB 5MG PO PRN (10:10)
[2024-08-02] MEDS: buPROPion **XL** TABLET 150MG (WELLBUTRIN XL) PO SCH (10:51)
[2024-08-02] MEDS: LURASIDONE 20 MG TAB (LATUDA) PO SCH (10:51)
[2024-08-02 16:15] VITALS: BP 126/70; TEMP 97.4; O2SAT 100
[2024-08-02] MEDS: LURASIDONE HCL 40MG TAB (LATUDA) PO SCH (17:49)
[2024-08-02] MEDS: LEVEMIR (INSULIN DETEMIR) 1 UNITS/0.01ML SC SCH (21:00)
[2024-08-03 06:31] VITALS: BP 139/61; TEMP 97.6; O2SAT 100
== END 2024-08-04 12:40 | disposition home or self-care (01) | DRG 885 ==
LOC: M ED 19:35 → M ED INP 21:51 → M PSY 08-02 00:15
PROVIDERS: ADMIT Internal Medicine; ATTEND Psychiatry & Neurology Psychiatry
DX: F25.9 Schizoaffective disorder, unspecified (principal); E11.9 Type 2 diabetes mellitus without complications; F17.200 Nicotine dependence, unspecified, uncomplicated; I10 Essential (primary) hypertension; Z79.4 Long term (current) use of insulin; Z79.899 Other long term (current) drug therapy; Z88.0 Allergy status to penicillin; Z88.1 Allergy status to other antibiotic agents

== ENCOUNTER 2024-08-10 11:32 | Emergency (ER) | payer MEDICARE ==
[~2024-08-10] VITALS: Ht 162.6 cm; Wt 82.7 kg
[2024-08-10 12:50] LABS: BASO % 0.3 % (0.0-1.0); EOS # 0.2 10^3/uL (0.0-0.5); EOS % 1.5 % (0.0-3.0); HEMATOCRIT 38.5 % (36.0-47.0); HEMOGLOBIN 12.8 g/dl (12.0-15.5); LYMPH % 8.3 % (24.0-44.0); MEAN CORPUSCULAR HEMOGLOBIN 27.4 pg (27.0-33.0); MEAN CORPUSCULAR HGB CONC 33.2 g/dl (32.0-36.5); MEAN CORPUSCULAR VOLUME 82.4 fl (80.0-96.0); MONO # 0.4 10^3/uL (0.0-0.8); MONO % 3.3 % (2.0-8.0); NEUTROPHILS # 10.7 10^3/uL (1.5-8.5); NEUTROPHILS % 86.3 % (36.0-66.0); PLATELET COUNT, AUTOMATED 380 10^3/uL (150-450); RED BLOOD COUNT 4.67 10^6/uL (4.00-5.40); WHITE BLOOD COUNT 12.4 10^3/uL (4.0-10.0)
[2024-08-10 13:25] LABS: BLOOD UREA NITROGEN 9 MG/DL (9-23); CALCIUM LEVEL 9.9 MG/DL (8.5-10.1); CARBON DIOXIDE LEVEL 23 MMOL/L (20-31); CHLORIDE LEVEL 106 MMOL/L (98-107); CREATININE FOR GFR 0.84 MG/DL (0.55-1.30); GLUCOSE, FASTING 146 MG/DL (60-100); LITHIUM LEVEL 0.28 MMOL/L (1.0-1.20); POTASSIUM SERUM 5.1 MMOL/L (3.5-5.1); SODIUM LEVEL 135 MMOL/L (136-145)
[2024-08-10] MEDS ORDERED: EEG XX (14:39)
[2024-08-10 14:45] VITALS: BP 127/72
[2024-08-10 14:50] VITALS: TEMP 98.1; O2SAT 98
== END 2024-08-10 15:02 | disposition home or self-care (01) ==
LOC: EDBD 11:32 → M ED 11:32
DX: R55 Syncope and collapse (principal); E11.9 Type 2 diabetes mellitus without complications; I10 Essential (primary) hypertension; F20.9 Schizophrenia, unspecified; Z79.4 Long term (current) use of insulin; Z79.899 Other long term (current) drug therapy; Z88.0 Allergy status to penicillin

== ENCOUNTER 2024-09-29 21:59 | Inpatient (IN) | payer MEDICARE, OTHER ==
[~2024-09-29] VITALS: Ht 160 cm; Wt 77.0 kg
[~2024-09-29 21:59] MED LIST changes: +EEG XX
[2024-09-29 23:14] LABS: HEMATOCRIT 40.5 % (36.0-47.0); HEMOGLOBIN 13.1 g/dl (12.0-15.5); MEAN CORPUSCULAR HEMOGLOBIN 27.1 pg (27.0-33.0); MEAN CORPUSCULAR HGB CONC 32.3 g/dl (32.0-36.5); MEAN CORPUSCULAR VOLUME 83.7 fl (80.0-96.0); PLATELET COUNT, AUTOMATED 385 10^3/uL (150-450); RED BLOOD COUNT 4.84 10^6/uL (4.00-5.40); WHITE BLOOD COUNT 9.4 10^3/uL (4.0-10.0)
[2024-09-29 23:33] LABS: AMPHETAMINES LEVEL URINE NEGATIVE (NEGATIVE); BARBITURATES URINE NEGATIVE (NEGATIVE); BENZODIAZEPINES URINE NEGATIVE (NEGATIVE); COCAINE METABOLITE URINE NEGATIVE (NEGATIVE); METHADONE URINE NEGATIVE (NEGATIVE); OPIATES URINE NEGATIVE (NEGATIVE); PHENCYCLIDINE URINE NEGATIVE (NEGATIVE)
[2024-09-29 23:35] LABS: CANNABINOIDS URINE POSITIVE (NEGATIVE)
[2024-09-29 23:47] LABS: ETHYL ALCOHOL (ETHANOL) < 0.003 % (0.000-0.010)
[2024-09-29 23:49] LABS: ALBUMIN 3.8 G/DL (3.2-5.2); ALKALINE PHOSPHATASE 86 U/L (35-104); ALT/SGPT 13 U/L (7.0-40); AST/SGOT 12 U/L (<34); BILIRUBIN,DIRECT 0.1 MG/DL (<0.4); BILIRUBIN,TOTAL 0.4 MG/DL (0.3-1.2); BLOOD UREA NITROGEN 15 MG/DL (9-23); CALCIUM LEVEL 10.1 MG/DL (8.5-10.1); CARBON DIOXIDE LEVEL 23 MMOL/L (20-31); CHLORIDE LEVEL 104 MMOL/L (98-107); CREATININE FOR GFR 0.68 MG/DL (0.55-1.30); GLUCOSE, FASTING 132 MG/DL (60-100); LITHIUM LEVEL < 0.10 MMOL/L (1.0-1.20); POTASSIUM SERUM 4.4 MMOL/L (3.5-5.1); SALICYLATE LEVEL < 3.0 MG/DL (<30); SODIUM LEVEL 137 MMOL/L (136-145); TOTAL PROTEIN 7.9 G/DL (5.7-8.2)
[2024-09-29 23:50] LABS: HCG, SERUM QUALITATIVE NEGATIVE (NEGATIVE)
[2024-09-29 23:51] LABS: THYROID STIMULATING HORMONE 1.481 uIU/ML (0.48-4.17)
[2024-09-30] MEDS ORDERED: IBUPROFEN 400MG TAB PO PRN (01:05)
[2024-09-30] MEDS ORDERED: traZODone 50 MG TAB PO PRN (01:05)
[2024-09-30] MEDS ORDERED: ACETAMINOPHEN 325 MG TAB PO PRN (01:05)
[2024-09-30] MEDS ORDERED: MAALOX 30 ML SUSP *UDC PO PRN (01:05)
[2024-09-30] MEDS: NICOTINE 21MG/24HR 1 EA TRANSDERMAL TD ONE (01:06)
[2024-09-30] MEDS ORDERED: TRUL0.5I SQ (01:18)
[2024-09-30] MEDS ORDERED: VITA200016 PO (01:18)
[2024-09-30] MEDS ORDERED: MED REC IN PROGRESS XX SCH (01:20)
[2024-09-30] MEDS ORDERED: GLUCOSE 4 GM CHEW PO PRN (01:25)
[2024-09-30] MEDS ORDERED: DEXTROSE 50% 50ML SYRINGE IV PRN (01:25)
[2024-09-30] MEDS ORDERED: GLUCAGON INJ 1MG VIAL SC PRN (01:25)
[2024-09-30 01:49] VITALS: BP 121/86; TEMP 96.8; O2SAT 100
[2024-09-30] MEDS: INSULIN LISPRO (NovoLOG) PER UNIT SC SCH ×2 (06:41→21:00)
[2024-09-30] MEDS ORDERED: HOME MED LIST COMPLETE! XX SCH (06:45)
[2024-09-30] MEDS: LITHIUM CARBONATE 150 MG CAP PO SCH (10:47)
[2024-09-30] MEDS: ESCITALOPRAM OXALATE 10 MG TAB (LEXAPRO) PO SCH (10:47)
[2024-09-30] MEDS: NICOTINE 14 MG/24 HR TRANSDERMAL TD SCH (12:08)
[2024-09-30] MEDS: LURASIDONE 20 MG TAB (LATUDA) PO SCH (12:24)
[2024-09-30 15:34] VITALS: BP 137/86; TEMP 97.4; O2SAT 99
[2024-09-30] MEDS: buPROPion **XL** TABLET 150MG (WELLBUTRIN XL) PO SCH (21:00)
[2024-09-30] MEDS: LURASIDONE HCL 40MG TAB (LATUDA) PO SCH (21:00)
[2024-09-30] MEDS: diphenhydrAMINE 25MG CAP PO PRN (23:01)
[2024-10-01 06:39] VITALS: BP 144/63; TEMP 97.5; O2SAT 100
[2024-10-01 12:13] VITALS: BP 144/63; TEMP 97.5; O2SAT 100
[2024-10-02 06:19] VITALS: BP 128/78; TEMP 96.8; O2SAT 99
[2024-10-02 14:55] VITALS: BP 132/79; TEMP 98; O2SAT 95
[2024-10-03] MEDS: MOM 30ML SUSPENSION UDC PO PRN (04:55)
[2024-10-03 06:15] VITALS: BP 146/77; TEMP 97.8; O2SAT 98
== END 2024-10-03 13:12 | disposition home or self-care (01) | DRG 885 ==
LOC: M ED 21:59 → M ED INP 09-30 01:01 → M PSY 09-30 01:24
PROVIDERS: ADMIT Psychiatry & Neurology Psychiatry; ATTEND Psychiatry & Neurology Psychiatry
DX: F25.0 Schizoaffective disorder, bipolar type (principal); R45.851 Suicidal ideations; F60.3 Borderline personality disorder; R41.89 Other symptoms and signs involving cognitive functions and awareness; E11.9 Type 2 diabetes mellitus without complications; I10 Essential (primary) hypertension; F17.200 Nicotine dependence, unspecified, uncomplicated; G47.00 Insomnia, unspecified; Z63.0 Problems in relationship with spouse or partner; Z59.9 Problem related to housing and economic circumstances, unspecified; Z79.899 Other long term (current) drug therapy; Z63.8 Other specified problems related to primary support group; Z88.0 Allergy status to penicillin

== ENCOUNTER 2024-10-24 17:09 | Inpatient (IN) | payer MEDICARE, OTHER ==
[~2024-10-24] VITALS: Ht 160 cm; Wt 77.9 kg
[~2024-10-24 17:09] MED LIST changes: +TRUL0.5I SQ; +VITA200016 PO
[2024-10-24 18:46] LABS: HEMATOCRIT 37.9 % (36.0-47.0); HEMOGLOBIN 12.4 g/dl (12.0-15.5); MEAN CORPUSCULAR HEMOGLOBIN 27.2 pg (27.0-33.0); MEAN CORPUSCULAR HGB CONC 32.7 g/dl (32.0-36.5); MEAN CORPUSCULAR VOLUME 83.1 fl (80.0-96.0); PLATELET COUNT, AUTOMATED 376 10^3/uL (150-450); RED BLOOD COUNT 4.56 10^6/uL (4.00-5.40); WHITE BLOOD COUNT 10.9 10^3/uL (4.0-10.0)
[2024-10-24 19:12] LABS: AMPHETAMINES LEVEL URINE NEGATIVE (NEGATIVE); BARBITURATES URINE NEGATIVE (NEGATIVE)
[2024-10-24 19:13] LABS: BENZODIAZEPINES URINE NEGATIVE (NEGATIVE); CANNABINOIDS URINE NEGATIVE (NEGATIVE); COCAINE METABOLITE URINE NEGATIVE (NEGATIVE); HCG, SERUM QUALITATIVE NEGATIVE (NEGATIVE); METHADONE URINE NEGATIVE (NEGATIVE); OPIATES URINE NEGATIVE (NEGATIVE); PHENCYCLIDINE URINE NEGATIVE (NEGATIVE)
[2024-10-24 19:15] LABS: ETHYL ALCOHOL (ETHANOL) 0.007 % (0.000-0.010)
[2024-10-24 19:17] LABS: ALBUMIN 3.8 G/DL (3.2-5.2); ALKALINE PHOSPHATASE 80 U/L (35-104); ALT/SGPT 15 U/L (7.0-40); AST/SGOT 11 U/L (<34); BILIRUBIN,DIRECT 0.2 MG/DL (<0.4); BILIRUBIN,TOTAL 0.6 MG/DL (0.3-1.2); BLOOD UREA NITROGEN 11 MG/DL (9-23); CALCIUM LEVEL 9.8 MG/DL (8.5-10.1); CARBON DIOXIDE LEVEL 24 MMOL/L (20-31); CHLORIDE LEVEL 106 MMOL/L (98-107); CREATININE FOR GFR 0.63 MG/DL (0.55-1.30); GLUCOSE, FASTING 110 MG/DL (60-100); POTASSIUM SERUM 4.2 MMOL/L (3.5-5.1); SALICYLATE LEVEL < 3.0 MG/DL (<30); SODIUM LEVEL 140 MMOL/L (136-145); TOTAL PROTEIN 7.9 G/DL (5.7-8.2)
[2024-10-24 19:18] LABS: THYROID STIMULATING HORMONE 1.163 uIU/ML (0.48-4.17)
[2024-10-24] MEDS ORDERED: MAALOX 30 ML SUSP *UDC PO PRN (20:00)
[2024-10-24] MEDS ORDERED: IBUPROFEN 400MG TAB PO PRN (20:00)
[2024-10-24] MEDS ORDERED: traZODone 50 MG TAB PO PRN (20:00)
[2024-10-24] MEDS ORDERED: LORazepam 1 MG TAB PO PRN (20:00)
[2024-10-24] MEDS ORDERED: MOM 30ML SUSPENSION UDC PO PRN (20:00)
[2024-10-24] MEDS ORDERED: HOME MED LIST COMPLETE! XX SCH (20:55)
[2024-10-24 21:54] VITALS: BP 155/80; TEMP 97.5; O2SAT 97
[2024-10-25] MEDS ORDERED: DEXTROSE 50% 50ML SYRINGE IV PRN (00:20)
[2024-10-25] MEDS ORDERED: GLUCAGON INJ 1MG VIAL SC PRN (00:20)
[2024-10-25] MEDS ORDERED: GLUCOSE 4 GM CHEW PO PRN (00:20)
[2024-10-25 06:27] VITALS: BP 115/53; TEMP 97.6; O2SAT 100
[2024-10-25] MEDS: INSULIN LISPRO (NovoLOG) PER UNIT SC SCH ×2 (06:58→22:11)
[2024-10-25] MEDS: NICOTINE 14 MG/24 HR TRANSDERMAL TD SCH (09:00)
[2024-10-25 14:33] VITALS: BP 148/67; TEMP 97.5; O2SAT 100
[2024-10-25] MEDS: LURASIDONE HCL 40MG TAB (LATUDA) PO SCH (22:10)
[2024-10-25] MEDS: LITHIUM CARBONATE 150 MG CAP PO SCH (22:10)
[2024-10-25] MEDS: buPROPion **XL** TABLET 150MG (WELLBUTRIN XL) PO SCH (22:11)
[2024-10-26] MEDS: diphenhydrAMINE 25MG CAP PO PRN (00:05)
[2024-10-26] MEDS: ESCITALOPRAM OXALATE 10 MG TAB (LEXAPRO) PO SCH (09:36)
[2024-10-26] MEDS: LURASIDONE 20 MG TAB (LATUDA) PO SCH (09:37)
[2024-10-26 16:23] VITALS: BP 143/78; TEMP 98.1; O2SAT 100
[2024-10-27] MEDS: ACETAMINOPHEN 325 MG TAB PO PRN (08:01)
== END 2024-10-27 14:56 | disposition home or self-care (01) | DRG 885 ==
LOC: M ED 17:09 → M ED INP 19:56 → M PSY 21:33
PROVIDERS: ADMIT Psychiatry & Neurology Neurology; ATTEND Psychiatry & Neurology Neurology
DX: F25.0 Schizoaffective disorder, bipolar type (principal); R45.851 Suicidal ideations; F60.3 Borderline personality disorder; E11.9 Type 2 diabetes mellitus without complications; G47.00 Insomnia, unspecified; F17.210 Nicotine dependence, cigarettes, uncomplicated; F12.90 Cannabis use, unspecified, uncomplicated; Z71.51 Drug abuse counseling and surveillance of drug abuser; Z79.899 Other long term (current) drug therapy; Z88.0 Allergy status to penicillin; Z91.51 Personal history of suicidal behavior; R41.89 Other symptoms and signs involving cognitive functions and awareness

== ENCOUNTER 2024-11-15 17:44 | Inpatient (IN) | payer MEDICARE, OTHER ==
[~2024-11-15] VITALS: Ht 157.5 cm; Wt 78.2 kg
[2024-11-15 18:33] LABS: HEMATOCRIT 37.7 % (36.0-47.0); HEMOGLOBIN 12.4 g/dl (12.0-15.5); MEAN CORPUSCULAR HEMOGLOBIN 27.3 pg (27.0-33.0); MEAN CORPUSCULAR HGB CONC 32.9 g/dl (32.0-36.5); MEAN CORPUSCULAR VOLUME 82.9 fl (80.0-96.0); PLATELET COUNT, AUTOMATED 386 10^3/uL (150-450); RED BLOOD COUNT 4.55 10^6/uL (4.00-5.40); WHITE BLOOD COUNT 10.7 10^3/uL (4.0-10.0)
[2024-11-15 18:53] LABS: AMPHETAMINES LEVEL URINE NEGATIVE (NEGATIVE); BARBITURATES URINE NEGATIVE (NEGATIVE); BENZODIAZEPINES URINE NEGATIVE (NEGATIVE); CANNABINOIDS URINE NEGATIVE (NEGATIVE); COCAINE METABOLITE URINE NEGATIVE (NEGATIVE); METHADONE URINE NEGATIVE (NEGATIVE); OPIATES URINE NEGATIVE (NEGATIVE); PHENCYCLIDINE URINE NEGATIVE (NEGATIVE)
[2024-11-15 18:55] LABS: ETHYL ALCOHOL (ETHANOL) < 0.003 % (0.000-0.010)
[2024-11-15 18:56] LABS: SALICYLATE LEVEL < 3.0 MG/DL (<30)
[2024-11-15 18:57] LABS: ALBUMIN 3.8 G/DL (3.2-5.2); ALKALINE PHOSPHATASE 86 U/L (35-104); ALT/SGPT 26 U/L (7.0-40); AST/SGOT 16 U/L (<34); BILIRUBIN,DIRECT 0.2 MG/DL (<0.4); BILIRUBIN,TOTAL 0.6 MG/DL (0.3-1.2); BLOOD UREA NITROGEN 16 MG/DL (9-23); CALCIUM LEVEL 9.5 MG/DL (8.5-10.1); CARBON DIOXIDE LEVEL 25 MMOL/L (20-31); CHLORIDE LEVEL 106 MMOL/L (98-107); CREATININE FOR GFR 0.63 MG/DL (0.55-1.30); GLUCOSE, FASTING 225 MG/DL (60-100); POTASSIUM SERUM 4.1 MMOL/L (3.5-5.1); SODIUM LEVEL 138 MMOL/L (136-145); TOTAL PROTEIN 7.6 G/DL (5.7-8.2)
[2024-11-15 18:58] LABS: LITHIUM LEVEL 0.13 MMOL/L (1.0-1.20)
[2024-11-15 18:59] LABS: THYROID STIMULATING HORMONE 1.256 uIU/ML (0.48-4.17)
[2024-11-15 19:09] LABS: HCG, SERUM QUALITATIVE NEGATIVE (NEGATIVE)
[2024-11-15] MEDS: OLANZapine ORAL DISINTEGRATING TAB 5MG PO ONE (19:46)
[2024-11-15] MEDS ORDERED: diphenhydrAMINE 25MG CAP PO PRN (20:55)
[2024-11-15] MEDS ORDERED: MAALOX 30 ML SUSP *UDC PO PRN (20:55)
[2024-11-15] MEDS ORDERED: IBUPROFEN 400MG TAB PO PRN (20:55)
[2024-11-15] MEDS ORDERED: MOM 30ML SUSPENSION UDC PO PRN (20:55)
[2024-11-15] MEDS ORDERED: traZODone 50 MG TAB PO PRN (20:55)
[2024-11-15] MEDS ORDERED: ACETAMINOPHEN 325 MG TAB PO PRN (20:55)
[2024-11-15] MEDS ORDERED: OLANZapine 5 MG TAB PO PRN (20:55)
[2024-11-15] MEDS: NICOTINE 14 MG/24 HR TRANSDERMAL TD SCH (21:00)
[2024-11-16] MEDS: LURASIDONE 20 MG TAB (LATUDA) PO SCH (08:00)
[2024-11-16] MEDS: VITAMIN D 1,000 INTERNATIONAL UNITS TABLET PO SCH (09:00)
[2024-11-16] MEDS: buPROPion **XL** TABLET 150MG (WELLBUTRIN XL) PO SCH (09:00)
[2024-11-16] MEDS: LITHIUM CARBONATE 150 MG CAP PO SCH (09:00)
[2024-11-16] MEDS: ESCITALOPRAM OXALATE 10 MG TAB (LEXAPRO) PO SCH (09:00)
[2024-11-16] MEDS ORDERED: HOME MED LIST COMPLETE! XX SCH (10:00)
[2024-11-16] MEDS: NICOTINE 14 MG/24 HR TRANSDERMAL TD SCH (10:34)
[2024-11-16] MEDS: INSULIN LISPRO (NovoLOG) PER UNIT SC SCH (12:00)
[2024-11-16] MEDS ORDERED: DEXTROSE 50% 50ML SYRINGE IV PRN (14:00)
[2024-11-16] MEDS ORDERED: GLUCAGON INJ 1MG VIAL SC PRN (14:00)
[2024-11-16] MEDS ORDERED: GLUCOSE 4 GM CHEW PO PRN (14:00)
[2024-11-16 16:33] LABS: HEMOGLOBIN A1c 6.8 % (4.0-6.0)
[2024-11-16 16:44] VITALS: BP 127/80; TEMP 97.8; O2SAT 98
[2024-11-16] MEDS: LURASIDONE HCL 40MG TAB (LATUDA) PO SCH (21:17)
[2024-11-16] MEDS: OLANZapine ORAL DISINTEGRATING TAB 5MG PO PRN (22:30)
[2024-11-17 15:20] VITALS: BP 153/73; TEMP 96.8; O2SAT 97
[2024-11-18 06:37] VITALS: BP 124/68; TEMP 98; O2SAT 100
[2024-11-18] MEDS ORDERED: VITA200016 PO (09:26)
[2024-11-18] MEDS ORDERED: NICO14PA TD (09:26)
[2024-11-18] MEDS ORDERED: LURA20TA PO (09:26)
[2024-11-18] MEDS ORDERED: BUPR150T12 PO (09:26)
[2024-11-18] MEDS ORDERED: TRUL0.5I SQ (09:26)
[2024-11-18] MEDS ORDERED: LITH150C PO (09:26)
[2024-11-18] MEDS: LITHIUM CARBONATE 300 MG CAP PO SCH (09:48)
== END 2024-11-18 13:50 | disposition home or self-care (01) | DRG 885 ==
LOC: M ED 17:44 → EDBD 17:44 → M ED INP 20:51 → M PSY 21:27
PROVIDERS: ADMIT Psychiatry & Neurology Neurology; ATTEND Psychiatry & Neurology Neurology
DX: F25.0 Schizoaffective disorder, bipolar type (principal); R45.851 Suicidal ideations; F60.3 Borderline personality disorder; F41.8 Other specified anxiety disorders; F17.210 Nicotine dependence, cigarettes, uncomplicated; F12.90 Cannabis use, unspecified, uncomplicated; E11.9 Type 2 diabetes mellitus without complications; F79 Unspecified intellectual disabilities; Z91.52 Personal history of nonsuicidal self-harm; Z62.810 Personal history of physical and sexual abuse in childhood; Z91.51 Personal history of suicidal behavior; Z81.8 Family history of other mental and behavioral disorders; Z79.899 Other long term (current) drug therapy; Z88.0 Allergy status to penicillin; Z88.1 Allergy status to other antibiotic agents; Z71.51 Drug abuse counseling and surveillance of drug abuser; Z11.52 Encounter for screening for COVID-19

== ENCOUNTER 2025-01-19 17:53 | Emergency (ER) | payer MEDICARE, OTHER ==
[~2025-01-19] VITALS: Ht 160 cm; Wt 69.3 kg
[~2025-01-19 17:53] MED LIST changes: -BUPR-335 PO; +NICO14PA TD; +[UNRECOGNIZED DRUG - CODE] PO
[2025-01-19 18:08] VITALS: TEMP 96.3
[2025-01-19 19:04] LABS: IONIZED CALCIUM 4.7 MG/DL (4.5-5.3)
[2025-01-19 19:16] LABS: BASO % 0.5 % (0.0-1.0); EOS # 0.1 10^3/uL (0.0-0.5); EOS % 0.7 % (0.0-3.0); HEMATOCRIT 37.2 % (36.0-47.0); HEMOGLOBIN 12.2 g/dl (12.0-15.5); LYMPH # 1.2 10^3/uL (1.5-5.0); LYMPH % 13.1 % (24.0-44.0); MEAN CORPUSCULAR HEMOGLOBIN 26.9 pg (27.0-33.0); MEAN CORPUSCULAR HGB CONC 32.8 g/dl (32.0-36.5); MEAN CORPUSCULAR VOLUME 81.9 fl (80.0-96.0); MONO # 0.3 10^3/uL (0.0-0.8); MONO % 3.3 % (2.0-8.0); NEUTROPHILS # 7.3 10^3/uL (1.5-8.5); NEUTROPHILS % 82.1 % (36.0-66.0); PLATELET COUNT, AUTOMATED 256 10^3/uL (150-450); RED BLOOD COUNT 4.54 10^6/uL (4.00-5.40); WHITE BLOOD COUNT 8.9 10^3/uL (4.0-10.0)
[2025-01-19 19:32] LABS: ALKALINE PHOSPHATASE 71 U/L (35-104); ALT/SGPT 9 U/L (7.0-40); AST/SGOT 12 U/L (<34); BILIRUBIN,DIRECT 0.2 MG/DL (<0.4); BILIRUBIN,TOTAL 0.7 MG/DL (0.3-1.2); BLOOD UREA NITROGEN 14 MG/DL (9-23); CALCIUM LEVEL 9.8 MG/DL (8.5-10.1); CARBON DIOXIDE LEVEL 25 MMOL/L (20-31); CHLORIDE LEVEL 108 MMOL/L (98-107); CREATININE FOR GFR 0.65 MG/DL (0.55-1.30); GLUCOSE, FASTING 111 MG/DL (60-100); MAGNESIUM LEVEL 1.9 MG/DL (1.8-2.4); PHOSPHORUS LEVEL 3.8 MG/DL (2.5-4.9); POTASSIUM SERUM 4.3 MMOL/L (3.5-5.1); SODIUM LEVEL 141 MMOL/L (136-145)
[2025-01-19 21:00] VITALS: BP 130/74; O2SAT 100
== END 2025-01-19 21:27 | disposition home or self-care (01) ==
LOC: EDBD 17:53 → M ED 17:53
DX: F44.5 Conversion disorder with seizures or convulsions (principal); E11.9 Type 2 diabetes mellitus without complications; F25.9 Schizoaffective disorder, unspecified; F17.200 Nicotine dependence, unspecified, uncomplicated; F12.10 Cannabis abuse, uncomplicated; Z79.4 Long term (current) use of insulin; Z79.899 Other long term (current) drug therapy; Z88.0 Allergy status to penicillin

== ENCOUNTER 2025-01-28 10:08 | Emergency (ER) | payer MEDICARE, OTHER ==
[~2025-01-28] VITALS: Ht 160 cm; Wt 72.9 kg
[2025-01-28 10:51] LABS: HEMATOCRIT 37.4 % (36.0-47.0); HEMOGLOBIN 12.2 g/dl (12.0-15.5); MEAN CORPUSCULAR HEMOGLOBIN 26.7 pg (27.0-33.0); MEAN CORPUSCULAR HGB CONC 32.6 g/dl (32.0-36.5); MEAN CORPUSCULAR VOLUME 81.8 fl (80.0-96.0); PLATELET COUNT, AUTOMATED 327 10^3/uL (150-450); RED BLOOD COUNT 4.57 10^6/uL (4.00-5.40)
[2025-01-28 11:20] LABS: AMPHETAMINES LEVEL URINE NEGATIVE (NEGATIVE); BARBITURATES URINE NEGATIVE (NEGATIVE); BENZODIAZEPINES URINE NEGATIVE (NEGATIVE); COCAINE METABOLITE URINE NEGATIVE (NEGATIVE); METHADONE URINE NEGATIVE (NEGATIVE); OPIATES URINE NEGATIVE (NEGATIVE); PHENCYCLIDINE URINE NEGATIVE (NEGATIVE)
[2025-01-28 11:21] LABS: CANNABINOIDS URINE NEGATIVE (NEGATIVE)
[2025-01-28 11:22] LABS: ETHYL ALCOHOL (ETHANOL) 0.006 % (0.000-0.010)
[2025-01-28 11:24] LABS: ALBUMIN 3.9 G/DL (3.2-5.2); ALKALINE PHOSPHATASE 67 U/L (35-104); ALT/SGPT < 9 U/L (7.0-40); AST/SGOT 11 U/L (<34); BILIRUBIN,DIRECT 0.2 MG/DL (<0.4); BILIRUBIN,TOTAL 0.7 MG/DL (0.3-1.2); BLOOD UREA NITROGEN 13 MG/DL (9-23); CALCIUM LEVEL 9.7 MG/DL (8.5-10.1); CARBON DIOXIDE LEVEL 25 MMOL/L (20-31); CHLORIDE LEVEL 107 MMOL/L (98-107); CREATININE FOR GFR 0.69 MG/DL (0.55-1.30); GLOMERULAR FILTRATION RATE > 60.0 (>60); GLUCOSE, FASTING 98 MG/DL (60-100); POTASSIUM SERUM 4.1 MMOL/L (3.5-5.1); SALICYLATE LEVEL < 3.0 MG/DL (<30); SODIUM LEVEL 141 MMOL/L (136-145); TOTAL PROTEIN 7.6 G/DL (5.7-8.2)
[2025-01-28 11:25] LABS: LITHIUM LEVEL 0.14 MMOL/L (1.0-1.20)
[2025-01-28 11:27] LABS: HCG, SERUM QUALITATIVE NEGATIVE (NEGATIVE)
[2025-01-28] MEDS: ACETAMINOPHEN 325 MG TAB PO ONE (12:00)
[2025-01-28] MEDS ORDERED: HOME MED LIST COMPLETE! XX SCH (13:00)
[2025-01-28 14:55] LABS: APPEARANCE, URINE TURBID (CLEAR); BACTERIA, URINE AUTO 1+ (NEGATIVE); BILIRUBIN, URINE AUTO NEGATIVE (NEGATIVE); BLOOD, URINE BLOOD 1+ (NEGATIVE); COLOR, URINE YELLOW (YELLOW); GLUCOSE, URINE (UA) AUTO NEGATIVE (NEGATIVE); KETONE, URINE AUTO NEGATIVE (NEGATIVE); LEUKOCYTE ESTERASE, URINE AUTO 2+ (NEGATIVE); MUCUS, URINE LARGE (NEGATIVE); NITRITE, URINE AUTO POSITIVE (NEGATIVE); PROTEIN, URINE AUTO 2+ mg/dL (NEGATIVE); RBC, URINE AUTO 8 /HPF (0-3); SPECIFIC GRAVITY URINE AUTO 1.027 (1.002-1.035); SQUAMOUS EPITHELIAL CELL UR AU 24 /HPF (0-6); UROBILINOGEN, URINE AUTO 0.2 mg/dL (0.0-2.0); WBC, URINE AUTO TNTC /HPF (0-3)
[2025-01-28] MEDS: CIPROFLOXACIN 250MG TAB PO SCH (22:14)
[2025-01-29 08:56] VITALS: BP 116/76; TEMP 98; O2SAT 99
== END 2025-01-29 10:20 ==
LOC: M ED 10:08
DX: R45.851 Suicidal ideations (principal); N39.0 Urinary tract infection, site not specified; F25.9 Schizoaffective disorder, unspecified; F60.3 Borderline personality disorder; Z88.0 Allergy status to penicillin; Z88.1 Allergy status to other antibiotic agents

== ENCOUNTER 2025-04-28 17:59 | Inpatient (IN) | payer MEDICARE, MEDICAID ==
[~2025-04-28] VITALS: Ht 162.6 cm; Wt 75.0 kg
[~2025-04-28 17:59] MED LIST changes: +BUPR-500 PO; -BUPR-597; -BUPR-597 PO; +BUPR-766; +BUPR-766 PO; -[UNRECOGNIZED DRUG - CODE] PO
[2025-04-28 18:36] LABS: PLATELET COUNT, AUTOMATED 372 10^3/uL (150-450)
[2025-04-28 18:59] LABS: AMPHETAMINES LEVEL URINE NEGATIVE (NEGATIVE); BARBITURATES URINE NEGATIVE (NEGATIVE); BENZODIAZEPINES URINE NEGATIVE (NEGATIVE); CANNABINOIDS URINE NEGATIVE (NEGATIVE); COCAINE METABOLITE URINE NEGATIVE (NEGATIVE); METHADONE URINE NEGATIVE (NEGATIVE); OPIATES URINE NEGATIVE (NEGATIVE); PHENCYCLIDINE URINE NEGATIVE (NEGATIVE)
[2025-04-28 19:02] LABS: ETHYL ALCOHOL (ETHANOL) 0.003 % (0.000-0.010)
[2025-04-28 19:03] LABS: SALICYLATE LEVEL < 3.0 MG/DL (<30)
[2025-04-28 19:09] LABS: ALT/SGPT 11 U/L (7.0-40); AST/SGOT 14 U/L (<34); CALCIUM LEVEL 9.7 MG/DL (8.5-10.1); CARBON DIOXIDE LEVEL 22 MMOL/L (20-31); CHLORIDE LEVEL 106 MMOL/L (98-107); CREATININE FOR GFR 0.68 MG/DL (0.55-1.30); GLOMERULAR FILTRATION RATE > 90.0 (>60); POTASSIUM SERUM 4.3 MMOL/L (3.5-5.1); SODIUM LEVEL 140 MMOL/L (136-145)
[2025-04-28 19:27] LABS: HCG, SERUM QUALITATIVE NEGATIVE (NEGATIVE)
[2025-04-28] MEDS ORDERED: OLAN10TA12 PO (19:29)
[2025-04-28] MEDS ORDERED: LEXA1TAB PO (19:29)
[2025-04-28] MEDS ORDERED: REXU1TAB3 PO (19:29)
[2025-04-28] MEDS ORDERED: TRUL10IN SC (19:29)
[2025-04-28] MEDS ORDERED: HOME MED LIST COMPLETE! XX SCH (19:30)
[2025-04-28] MEDS ORDERED: traZODone 50 MG TAB PO PRN (21:05)
[2025-04-28] MEDS ORDERED: MOM 30 ML SUSPENSION UDC PO PRN (21:05)
[2025-04-28] MEDS ORDERED: MAALOX 30 ML SUSP *UDC PO PRN (21:05)
[2025-04-29 06:34] VITALS: BP 134/82; TEMP 97.6; O2SAT 99
[2025-04-29] MEDS: INSULIN LISPRO (NovoLOG) PER UNIT SC SCH ×2 (07:30→21:00)
[2025-04-29] MEDS: ESCITALOPRAM OXALATE 10 MG TABLET PO SCH (08:52)
[2025-04-29] MEDS ORDERED: TRUL10IN SC (09:24)
[2025-04-29] MEDS ORDERED: GLUCOSE 4 GM CHEW PO PRN (09:25)
[2025-04-29] MEDS ORDERED: GLUCAGON INJ 1 MG VIAL SC PRN (09:25)
[2025-04-29] MEDS ORDERED: DEXTROSE 50% 50 ML SYRINGE IV PRN (09:25)
[2025-04-29 15:47] VITALS: BP 139/86; TEMP 97.6; O2SAT 99
[2025-04-29] MEDS: OLANZapine ORAL DISINTEGRATING TAB 5MG PO SCH (21:00)
[2025-04-30 15:24] VITALS: BP 134/89; TEMP 97.4; O2SAT 100
[2025-04-30] MEDS: ESCITALOPRAM OXALATE 5 MG TABLET PO SCH (21:33)
[2025-05-01] MEDS: OLANZapine ORAL DISINTEGRATING TAB 5MG PO PRN (15:56)
[2025-05-02 15:16] VITALS: BP 133/61; TEMP 98.3; O2SAT 97
[2025-05-02] MEDS: OLANZapine ORAL DISINTEGRATING TAB 5MG PO SCH (20:35)
[2025-05-03 06:22] VITALS: BP 129/62; TEMP 97.9; O2SAT 98
[2025-05-03 17:42] VITALS: BP 139/69; TEMP 98.4; O2SAT 100
[2025-05-04 06:48] VITALS: BP 112/72; TEMP 97.4; O2SAT 91
[2025-05-04] MEDS ORDERED: TRULICITY (PATIENT'S OWN MED) SC SCH ×2 (09:00)
[2025-05-04 15:42] VITALS: BP 145/67; TEMP 98.3; O2SAT 99
[2025-05-05 06:40] VITALS: BP 117/58; TEMP 97; O2SAT 99
[2025-05-06] MEDS: IBUPROFEN 400 MG TAB PO PRN (02:23)
[2025-05-06] MEDS: ACETAMINOPHEN 325 MG TAB PO PRN (12:49)
[2025-05-07 16:00] VITALS: BP 120/65; TEMP 97.7; O2SAT 99
[2025-05-08] MEDS ORDERED: OLAN1TAB20 PO (03:02)
[2025-05-08] MEDS ORDERED: LEXA1TAB PO (03:02)
[2025-05-08] MEDS ORDERED: HYDR-3363 PO (03:02)
[2025-05-08] MEDS ORDERED: OLAN1TAB16 PO (03:02)
[2025-05-08] MEDS ORDERED: TRAZ-252 PO (03:02)
[2025-05-08] MEDS: DULAGLUTIDE 0.75 MG/0.5 ML SC SCH (10:32)
[2025-05-11] MEDS ORDERED: DULAGLUTIDE 0.75 MG/0.5 ML SC SCH (09:00)
== END 2025-05-08 12:05 | disposition home or self-care (01) | DRG 885 ==
LOC: M ED 17:59 → M ED INP 21:05 → M PSY 22:36
PROVIDERS: ADMIT Psychiatry & Neurology Neurology; ATTEND Psychiatry & Neurology Neurology
DX: F25.0 Schizoaffective disorder, bipolar type (principal); R45.851 Suicidal ideations; F41.1 Generalized anxiety disorder; F60.3 Borderline personality disorder; R45.850 Homicidal ideations; F12.90 Cannabis use, unspecified, uncomplicated; E11.9 Type 2 diabetes mellitus without complications; Z56.0 Unemployment, unspecified; Z79.899 Other long term (current) drug therapy; Z79.85 Long-term (current) use of injectable non-insulin antidiabetic drugs; Z88.0 Allergy status to penicillin; Z88.1 Allergy status to other antibiotic agents; Z87.891 Personal history of nicotine dependence; Z71.51 Drug abuse counseling and surveillance of drug abuser; Z91.51 Personal history of suicidal behavior

== ENCOUNTER 2025-05-21 17:56 | Inpatient (IN) | payer MEDICARE, MEDICAID ==
[~2025-05-21] VITALS: Ht 162.6 cm; Wt 78.8 kg
[~2025-05-21 17:56] MED LIST changes: +HYDR-3363 PO; +LEXA1TAB PO; +OLAN10TA12 PO; +OLAN1TAB16 PO; +OLAN1TAB20 PO; +REXU1TAB3 PO; +TRAZ-252 PO; +TRUL10IN SC
[2025-05-21 19:15] LABS: PLATELET COUNT, AUTOMATED 362 10^3/uL (150-450)
[2025-05-21 19:36] LABS: AMPHETAMINES LEVEL URINE NEGATIVE (NEGATIVE); BARBITURATES URINE NEGATIVE (NEGATIVE); BENZODIAZEPINES URINE NEGATIVE (NEGATIVE); COCAINE METABOLITE URINE NEGATIVE (NEGATIVE); METHADONE URINE NEGATIVE (NEGATIVE)
[2025-05-21 19:37] LABS: CANNABINOIDS URINE POSITIVE (NEGATIVE); OPIATES URINE NEGATIVE (NEGATIVE); PHENCYCLIDINE URINE NEGATIVE (NEGATIVE)
[2025-05-21 19:38] LABS: ETHYL ALCOHOL (ETHANOL) < 0.003 % (0.000-0.010); HCG, SERUM QUALITATIVE NEGATIVE (NEGATIVE)
[2025-05-21 19:40] LABS: ALT/SGPT 19 U/L (7.0-40); AST/SGOT 19 U/L (<34); CALCIUM LEVEL 9.6 MG/DL (8.5-10.1); CARBON DIOXIDE LEVEL 27 MMOL/L (20-31); CHLORIDE LEVEL 103 MMOL/L (98-107); CREATININE FOR GFR 0.67 MG/DL (0.55-1.30); GLOMERULAR FILTRATION RATE > 90.0 (>60); POTASSIUM SERUM 3.9 MMOL/L (3.5-5.1); SALICYLATE LEVEL < 3.0 MG/DL (<30); SODIUM LEVEL 142 MMOL/L (136-145)
[2025-05-21] MEDS ORDERED: TRUL10IN SC (20:35)
[2025-05-21] MEDS ORDERED: LEXA1TAB PO (20:39)
[2025-05-21] MEDS: ESCITALOPRAM OXALATE 10 MG TABLET PO ONE (20:39)
[2025-05-21] MEDS: OLANZapine 10 MG TAB PO ONE (20:39)
[2025-05-21] MEDS ORDERED: ACET1TAB55 PO (20:54)
[2025-05-21] MEDS ORDERED: ACET-683 PO (20:54)
[2025-05-21] MEDS ORDERED: BENA25CA4 PO (20:54)
[2025-05-21] MEDS ORDERED: OLAN1TAB16 PO (20:54)
[2025-05-21] MEDS ORDERED: OLAN1TAB20 PO (20:54)
[2025-05-21] MEDS ORDERED: HOME MED LIST COMPLETE! XX SCH (20:55)
[2025-05-22] MEDS ORDERED: ACETAMINOPHEN 325 MG TAB PO PRN (12:40)
[2025-05-22] MEDS ORDERED: MOM 30 ML SUSPENSION UDC PO PRN (12:40)
[2025-05-22] MEDS ORDERED: traZODone 50 MG TAB PO PRN (12:40)
[2025-05-22] MEDS ORDERED: IBUPROFEN 400 MG TAB PO PRN (12:40)
[2025-05-22] MEDS ORDERED: MAALOX 30 ML SUSP *UDC PO PRN (12:40)
[2025-05-22 13:44] VITALS: BP 134/72; TEMP 99.1; O2SAT 100
[2025-05-22] MEDS: OLANZapine ORAL DISINTEGRATING TAB 5MG PO PRN (17:37)
[2025-05-22] MEDS: ESCITALOPRAM OXALATE 10 MG TABLET PO SCH (20:16)
[2025-05-22] MEDS: OLANZapine 10 MG TAB PO SCH (20:16)
[2025-05-23 15:27] VITALS: BP 154/85; TEMP 97.3; O2SAT 100
[2025-05-23] MEDS ORDERED: ENTER DRUG NAME HERE (PATIENT'S OWN MED) SC SCH (16:55)
[2025-05-23] MEDS ORDERED: OLANZapine 10 MG TAB PO SCH (21:00)
[2025-05-24] MEDS ORDERED: LEXA1TAB PO (08:42)
[2025-05-24] MEDS ORDERED: ESCITALOPRAM OXALATE 10 MG TABLET PO SCH (09:00)
== END 2025-05-24 10:25 | disposition home or self-care (01) | DRG 885 ==
LOC: M ED 17:56 → EDBD 17:56 → M ED INP 05-22 12:38 → M PSY 05-22 13:50
PROVIDERS: ADMIT General Practice; ATTEND General Practice
DX: F33.2 Major depressive disorder, recurrent severe without psychotic features (principal); R45.851 Suicidal ideations; F25.9 Schizoaffective disorder, unspecified; F60.3 Borderline personality disorder; E11.9 Type 2 diabetes mellitus without complications; F17.210 Nicotine dependence, cigarettes, uncomplicated; I10 Essential (primary) hypertension; G47.00 Insomnia, unspecified; G40.909 Epilepsy, unspecified, not intractable, without status epilepticus; Z63.0 Problems in relationship with spouse or partner; Z79.899 Other long term (current) drug therapy; Z91.51 Personal history of suicidal behavior; Z56.0 Unemployment, unspecified; Z79.85 Long-term (current) use of injectable non-insulin antidiabetic drugs; Z88.0 Allergy status to penicillin; Z88.1 Allergy status to other antibiotic agents; Z88.8 Allergy status to other drugs, medicaments and biological substances

== ENCOUNTER 2025-05-31 16:27 | Inpatient (IN) | payer MEDICARE, MEDICAID ==
[~2025-05-31] VITALS: Ht 162.6 cm; Wt 77.3 kg
[~2025-05-31 16:27] MED LIST changes: +ACET-683 PO; +ACET1TAB55 PO; +BENA25CA4 PO
[2025-05-31 17:21] LABS: PLATELET COUNT, AUTOMATED 341 10^3/uL (150-450)
[2025-05-31 19:11] LABS: ALT/SGPT 23 U/L (7.0-40); AST/SGOT 29 U/L (<34); CALCIUM LEVEL 9.1 MG/DL (8.5-10.1); CARBON DIOXIDE LEVEL 21.7 MMOL/L (20-31); CHLORIDE LEVEL 106 MMOL/L (98-107); CREATININE FOR GFR 0.64 MG/DL (0.55-1.30); GLOMERULAR FILTRATION RATE > 90.0 (>60); POTASSIUM SERUM 4.1 MMOL/L (3.5-5.1); SODIUM LEVEL 141 MMOL/L (136-145)
[2025-05-31 19:13] LABS: ETHYL ALCOHOL (ETHANOL) < 0.003 % (0.000-0.010); SALICYLATE LEVEL < 3.0 MG/DL (<30)
[2025-05-31 19:22] LABS: HCG, SERUM QUALITATIVE NEGATIVE (NEGATIVE)
[2025-05-31 20:03] LABS: AMPHETAMINES LEVEL URINE NEGATIVE (NEGATIVE); BARBITURATES URINE NEGATIVE (NEGATIVE); BENZODIAZEPINES URINE NEGATIVE (NEGATIVE); CANNABINOIDS URINE POSITIVE (NEGATIVE); COCAINE METABOLITE URINE NEGATIVE (NEGATIVE); METHADONE URINE NEGATIVE (NEGATIVE); OPIATES URINE NEGATIVE (NEGATIVE)
[2025-05-31 20:35] LABS: PHENCYCLIDINE URINE NEGATIVE (NEGATIVE)
[2025-05-31] MEDS ORDERED: MOM 30 ML SUSPENSION UDC PO PRN (20:35)
[2025-05-31] MEDS ORDERED: traZODone 50 MG TAB PO PRN (20:35)
[2025-05-31] MEDS ORDERED: MAALOX 30 ML SUSP *UDC PO PRN (20:35)
[2025-05-31] MEDS ORDERED: HOME MED LIST COMPLETE! XX SCH (21:55)
[2025-06-01 06:29] VITALS: BP 94/50; TEMP 97.6; O2SAT 100
[2025-06-01] MEDS: ACETAMINOPHEN 325 MG TAB PO PRN (09:55)
[2025-06-01] MEDS: IBUPROFEN 400 MG TAB PO PRN (12:25)
[2025-06-01] MEDS ORDERED: GLUCOSE 4 GM CHEW PO PRN (12:55)
[2025-06-01] MEDS ORDERED: GLUCAGON INJ 1 MG VIAL SC PRN (12:55)
[2025-06-01] MEDS ORDERED: DEXTROSE 50% 50 ML SYRINGE IV PRN (12:55)
[2025-06-01] MEDS: OLANZapine 5 MG TAB PO ONE (13:46)
[2025-06-01 14:54] VITALS: BP 148/82; TEMP 97.8; O2SAT 99
[2025-06-01] MEDS: INSULIN LISPRO (NovoLOG) PER UNIT SC SCH ×2 (17:01→21:00)
[2025-06-01] MEDS: ESCITALOPRAM OXALATE 10 MG TABLET PO SCH (21:00)
[2025-06-01] MEDS: OLANZapine 10 MG TAB PO SCH (21:00)
[2025-06-02 08:14] VITALS: BP 124/75; TEMP 97.4; O2SAT 100
[2025-06-02] MEDS: OLANZapine 5 MG TAB PO SCH (11:33)
[2025-06-02 15:12] VITALS: BP 137/87; TEMP 97.9; O2SAT 97
[2025-06-02] MEDS: NICOTINE POLACRILEX 2 MG GUM PO PRN (17:58)
[2025-06-02] MEDS: DIVALPROEX 500 MG *ER* TAB PO SCH (20:51)
[2025-06-03 14:44] VITALS: BP 138/76; TEMP 98.5; O2SAT 99
[2025-06-04 15:12] VITALS: BP 141/70; TEMP 98.6; O2SAT 98
[2025-06-05 15:26] VITALS: BP 145/81; TEMP 98.6; O2SAT 98
[2025-06-05] MEDS: OLANZapine 5 MG TAB PO PRN (19:12)
[2025-06-05] MEDS: ESCITALOPRAM OXALATE 10 MG TABLET PO SCH (21:40)
[2025-06-06 17:11] VITALS: BP 141/87; TEMP 99.3; O2SAT 98
[2025-06-07 06:34] VITALS: BP 97/51; TEMP 96.9; O2SAT 97
[2025-06-07] MEDS ORDERED: DEPA500T2 PO (08:26)
[2025-06-07] MEDS ORDERED: OLAN1TAB20 PO (08:26)
[2025-06-07] MEDS ORDERED: OLAN1TAB16 PO ×2 (08:26)
[2025-06-07] MEDS ORDERED: LEXA1TAB PO (08:26)
== END 2025-06-07 13:52 | disposition home or self-care (01) | DRG 885 ==
LOC: M ED 16:27 → M ED INP 20:35 → M PSY 22:56
PROVIDERS: ADMIT Psychiatry & Neurology Neurology; ATTEND Psychiatry & Neurology Neurology
DX: F25.0 Schizoaffective disorder, bipolar type (principal); R45.851 Suicidal ideations; F41.1 Generalized anxiety disorder; F41.0 Panic disorder [episodic paroxysmal anxiety]; F60.3 Borderline personality disorder; Z88.0 Allergy status to penicillin; Z88.8 Allergy status to other drugs, medicaments and biological substances; Z79.899 Other long term (current) drug therapy; Z91.148 Patient's other noncompliance with medication regimen for other reason; F17.200 Nicotine dependence, unspecified, uncomplicated; E11.9 Type 2 diabetes mellitus without complications; G47.00 Insomnia, unspecified

== ENCOUNTER 2025-06-23 16:59 | Inpatient (IN) | payer MEDICARE, MEDICAID ==
[~2025-06-23] VITALS: Ht 160 cm; Wt 85.4 kg
[~2025-06-23 16:59] MED LIST changes: +DEPA500T2 PO
[2025-06-23 18:01] LABS: PLATELET COUNT, AUTOMATED 354 10^3/uL (150-450)
[2025-06-23 18:16] LABS: AMPHETAMINES LEVEL URINE NEGATIVE (NEGATIVE); BARBITURATES URINE NEGATIVE (NEGATIVE)
[2025-06-23 18:17] LABS: BENZODIAZEPINES URINE NEGATIVE (NEGATIVE); COCAINE METABOLITE URINE NEGATIVE (NEGATIVE); METHADONE URINE NEGATIVE (NEGATIVE); OPIATES URINE NEGATIVE (NEGATIVE); PHENCYCLIDINE URINE NEGATIVE (NEGATIVE)
[2025-06-23 18:19] LABS: ETHYL ALCOHOL (ETHANOL) 0.004 % (0.000-0.010)
[2025-06-23 18:21] LABS: ALT/SGPT 28 U/L (7.0-40); AST/SGOT 14 U/L (<34); CALCIUM LEVEL 9.6 MG/DL (8.5-10.1); CANNABINOIDS URINE POSITIVE (NEGATIVE); CARBON DIOXIDE LEVEL 23 MMOL/L (20-31); CHLORIDE LEVEL 108 MMOL/L (98-107); CREATININE FOR GFR 0.59 MG/DL (0.55-1.30); GLOMERULAR FILTRATION RATE > 90.0 (>60); POTASSIUM SERUM 4.3 MMOL/L (3.5-5.1); SALICYLATE LEVEL < 3.0 MG/DL (<30); SODIUM LEVEL 142 MMOL/L (136-145)
[2025-06-23 18:30] LABS: HCG, SERUM QUALITATIVE NEGATIVE (NEGATIVE)
[2025-06-23] MEDS ORDERED: OLAN10TA12 PO (20:07)
[2025-06-23] MEDS ORDERED: HOME MED LIST COMPLETE! XX SCH (20:10)
[2025-06-23] MEDS ORDERED: IBUPROFEN 400 MG TAB PO PRN (21:35)
[2025-06-23] MEDS ORDERED: MOM 30 ML SUSPENSION UDC PO PRN (21:35)
[2025-06-23] MEDS ORDERED: MAALOX 30 ML SUSP *UDC PO PRN (21:35)
[2025-06-23] MEDS ORDERED: ACETAMINOPHEN 325 MG TAB PO PRN (21:35)
[2025-06-23] MEDS: NICOTINE POLACRILEX 2 MG GUM PO ONE (21:51)
[2025-06-23] MEDS: OLANZapine ORAL DISINTEGRATING TAB 5MG PO PRN (22:52)
[2025-06-24 01:26] VITALS: BP 145/80; TEMP 98; O2SAT 99
[2025-06-24 09:19] VITALS: BP 136/82; TEMP 98.3; O2SAT 100
[2025-06-24] MEDS: OLANZapine 5 MG TAB PO SCH (10:23)
[2025-06-24] MEDS: NICOTINE POLACRILEX 2 MG GUM PO PRN (11:56)
[2025-06-24] MEDS: OLANZapine 10 MG TAB PO SCH (20:16)
[2025-06-24] MEDS: DIVALPROEX 500 MG *ER* TAB PO SCH (20:16)
[2025-06-24] MEDS: ESCITALOPRAM OXALATE 5 MG TABLET PO SCH (20:16)
[2025-06-24] MEDS ORDERED: ESCITALOPRAM OXALATE 10 MG TABLET PO SCH (21:00)
[2025-06-25 09:35] VITALS: BP 125/58; TEMP 98.4; O2SAT 98
[2025-06-26] MEDS: TRULICITY 0.75 MG/0.5 ML SC SCH (08:45)
[2025-06-26] MEDS: NICOTINE POLACRILEX 2 MG GUM PO PRN (13:10)
[2025-06-26 14:43] VITALS: BP 123/84; TEMP 98.9; O2SAT 99
[2025-06-27 06:45] VITALS: BP 111/54; TEMP 97.3; O2SAT 99
[2025-06-27 15:04] VITALS: BP 138/82; TEMP 97.6; O2SAT 98
[2025-06-27] MEDS: HALOPERIDOL 5 MG TAB PO PRN (15:45)
[2025-06-27] MEDS: OLANZapine 10 MG TAB PO SCH (20:39)
[2025-06-27] MEDS ORDERED: OLANZapine 5 MG TAB PO SCH (21:00)
[2025-06-28] MEDS ORDERED: LEXA5TAB13 PO (08:44)
== END 2025-06-28 11:30 | disposition home or self-care (01) | DRG 885 ==
LOC: M ED 16:59 → UNDOADMIN 21:35 → M PSY 21:35 → M ED INP 21:35
PROVIDERS: ADMIT Psychiatry & Neurology Neurology; ATTEND Psychiatry & Neurology Neurology
DX: F25.0 Schizoaffective disorder, bipolar type (principal); R45.851 Suicidal ideations; F41.1 Generalized anxiety disorder; F60.3 Borderline personality disorder; F17.210 Nicotine dependence, cigarettes, uncomplicated; E11.9 Type 2 diabetes mellitus without complications; F12.90 Cannabis use, unspecified, uncomplicated; Z63.0 Problems in relationship with spouse or partner; Z91.51 Personal history of suicidal behavior; Z56.0 Unemployment, unspecified; Z79.899 Other long term (current) drug therapy; Z88.0 Allergy status to penicillin; Z88.8 Allergy status to other drugs, medicaments and biological substances; Z71.51 Drug abuse counseling and surveillance of drug abuser

== ENCOUNTER 2025-08-06 20:25 | Emergency (ER) | payer MEDICARE, MEDICAID ==
[~2025-08-06] VITALS: Ht 160 cm; Wt 85.0 kg
[~2025-08-06 20:25] MED LIST changes: +LEXA5TAB13 PO
[2025-08-06 21:37] LABS: PLATELET COUNT, AUTOMATED 376 10^3/uL (150-450)
[2025-08-06 22:10] LABS: ETHYL ALCOHOL (ETHANOL) < 0.003 % (0.000-0.010)
[2025-08-06 22:11] LABS: ALT/SGPT 10 U/L (7.0-40); AST/SGOT 17 U/L (<34); CALCIUM LEVEL 9.5 MG/DL (8.5-10.1); CARBON DIOXIDE LEVEL 24 MMOL/L (20-31); CHLORIDE LEVEL 106 MMOL/L (98-107); CREATININE FOR GFR 0.69 MG/DL (0.55-1.30); GLOMERULAR FILTRATION RATE > 90.0 (>60); POTASSIUM SERUM 4.1 MMOL/L (3.5-5.1); SALICYLATE LEVEL < 3.0 MG/DL (<30); SODIUM LEVEL 141 MMOL/L (136-145)
[2025-08-06 22:38] LABS: CPK CREATINE PHOSPHOKINASE 116 U/L (34-145)
[2025-08-07 00:53] LABS: HCG, SERUM QUALITATIVE NEGATIVE (NEGATIVE)
[2025-08-07 01:03] LABS: AMPHETAMINES LEVEL URINE NEGATIVE (NEGATIVE); BARBITURATES URINE NEGATIVE (NEGATIVE); BENZODIAZEPINES URINE NEGATIVE (NEGATIVE); CANNABINOIDS URINE NEGATIVE (NEGATIVE); COCAINE METABOLITE URINE NEGATIVE (NEGATIVE); METHADONE URINE NEGATIVE (NEGATIVE); OPIATES URINE NEGATIVE (NEGATIVE); PHENCYCLIDINE URINE NEGATIVE (NEGATIVE)
[2025-08-07 08:27] LABS: VALPROIC ACID (DEPAKOTE) < 3.0 UG/ML (50.0-100.0)
[2025-08-07] MEDS ORDERED: DIVA500T9 PO (08:44)
[2025-08-07] MEDS ORDERED: VITA200035 PO (08:44)
[2025-08-07] MEDS ORDERED: OLAN1TAB16 PO (08:44)
[2025-08-07] MEDS ORDERED: HOME MED LIST COMPLETE! XX SCH (08:45)
[2025-08-07 13:40] VITALS: BP 129/81; TEMP 97.6; O2SAT 100
== END 2025-08-07 13:43 | disposition home or self-care (01) ==
LOC: M ED 20:25
DX: F25.9 Schizoaffective disorder, unspecified (principal); E10.9 Type 1 diabetes mellitus without complications; I10 Essential (primary) hypertension; F32.A Depression, unspecified; F60.3 Borderline personality disorder; R56.9 Unspecified convulsions; Z88.0 Allergy status to penicillin; Z88.1 Allergy status to other antibiotic agents; Z88.8 Allergy status to other drugs, medicaments and biological substances; F17.200 Nicotine dependence, unspecified, uncomplicated

== ENCOUNTER 2025-09-02 22:13 | Emergency (ER) | payer MEDICARE, MEDICAID ==
[~2025-09-02] VITALS: Ht 160 cm; Wt 81.8 kg
[~2025-09-02 22:13] MED LIST changes: +DIVA500T9 PO; +VITA200035 PO
[2025-09-02 23:59] LABS: ALT/SGPT 13 U/L (7.0-40); AST/SGOT 15 U/L (<34); CALCIUM LEVEL 8.9 MG/DL (8.5-10.1); CARBON DIOXIDE LEVEL 27 MMOL/L (20-31); CHLORIDE LEVEL 105 MMOL/L (98-107); CREATININE FOR GFR 0.71 MG/DL (0.55-1.30); GLOMERULAR FILTRATION RATE > 90.0 (>60); MAGNESIUM LEVEL 1.7 MG/DL (1.8-2.4); POTASSIUM SERUM 3.7 MMOL/L (3.5-5.1); SODIUM LEVEL 141 MMOL/L (136-145)
[2025-09-03 00:11] LABS: BASO # 0.1 10^3/uL (0.0-0.2); BASO % 0.4 % (0.0-1.0); EOS # 0.2 10^3/uL (0.0-0.5); EOS % 1.6 % (0.0-3.0); LYMPH # 2.1 10^3/uL (1.5-5.0); LYMPH % 17.3 % (24.0-44.0); MONO # 0.6 10^3/uL (0.0-0.8); MONO % 5.0 % (2.0-8.0); NEUTROPHILS # 9.3 10^3/uL (1.5-8.5); NEUTROPHILS % 75.5 % (36.0-66.0); PLATELET COUNT, AUTOMATED 365 10^3/uL (150-450)
[2025-09-03 01:00] VITALS: BP 132/92; TEMP 98.3; O2SAT 100
== END 2025-09-03 01:02 | disposition home or self-care (01) ==
LOC: EDBD 22:13 → M ED 22:13
DX: R56.9 Unspecified convulsions (principal); E11.9 Type 2 diabetes mellitus without complications; I10 Essential (primary) hypertension; F32.9 Major depressive disorder, single episode, unspecified; F25.9 Schizoaffective disorder, unspecified; F60.3 Borderline personality disorder; F17.200 Nicotine dependence, unspecified, uncomplicated; F12.10 Cannabis abuse, uncomplicated; Z79.4 Long term (current) use of insulin; Z79.899 Other long term (current) drug therapy; Z88.0 Allergy status to penicillin; Z88.5 Allergy status to narcotic agent